=== PATIENT | male | born 1955 | race Caucasian/White ===

== ENCOUNTER → 2017-01-13 | Outpatient (CLI) | payer OTHER ==
[~2017-01-13] MED LIST: ACET-1138 PO; ALBUAER19 INH; ASPEC81 PO; ATEN50TA8 PO; ATOR-22 PO; BUPR1SUB23 PO; DOXA1TAB86 PO; LISI10TA PO; ONDA8TAB6 PO; OXYSR10 PO; RXC5 PO; SENNTAB23 PO; voltaren gel TOP
[2017-01-13 15:35] LABS: HEMATOCRIT 42.1 % (42-52); MEAN CELL VOLUME 81.1 fL (80-100); MEAN CORPUSCULAR HEMOGLOBIN 27.6 pg (25-34); MEAN PLATELET VOLUME 8.9 fL (7.4-10.4); PLATELET COUNT 209 K/uL (130-400); RED BLOOD COUNT 5.19 M/uL (4.7-6.1); WHITE BLOOD COUNT 5.84 K/uL (4.8-10.8)
[2017-01-13 16:04] LABS: ALT/SGPT 28 U/L (12-78); AST/SGOT 5 U/L (15-37); BLOOD UREA NITROGEN 7 mg/dl (7-18); BUN/CREATININE RATIO 8.7 (10-20); CALCIUM 9.1 mg/dl (8.5-10.1); CARBON DIOXIDE 27 mmol/L (21-32); CHLORIDE 105 mmol/L (98-107); CHOLESTEROL 143 mg/dl (0-200); CREATININE 0.85 mg/dl (0.60-1.40); GLUCOSE 93 mg/dl (70-99); POTASSIUM 3.8 mmol/L (3.5-5.1); SODIUM 139 mmol/L (136-145)
[2017-01-13 16:15] LABS: ALKALINE PHOSPHATASE 75 U/L (45-117); CHOLESTEROL/HDL RATIO 4.2; HDL CHOLESTEROL 34 mg/dl; LDL CHOLESTEROL CALCULATED 60 mg/dl; TRIGLYCERIDES 244 mg/dl (0-150); VERY LOW DENSITY LIPOPROT CALC 49 mg/dl
[2017-01-14 06:15] LABS: ESTIMATED AVERAGE GLUCOSE 131 mg/dl; HA1C FLAG Normal (Normal)
[2017-01-17 16:28] LABS: HEPATITIS C RNA TMA QUAL Not detected
[2017-01-18 13:45] LABS: HEPATITIS C VIRAL RNA BY PCR <15 NOT DETECTED IU/ML (<15); HEPATITIS C VIRAL RNA(LOG) PCR <1.18 NOT DETECTED LOG IU/ML (<1.18)
== END | disposition home or self-care (01) ==
LOC: C.LAB1850 14:05
PROVIDERS: ATTEND Physician Assistant
DX: I25.10 Atherosclerotic heart disease of native coronary artery without angina pectoris (principal); I10 Essential (primary) hypertension; E78.5 Hyperlipidemia, unspecified; M54.16 Radiculopathy, lumbar region; R73.9 Hyperglycemia, unspecified; J45.909 Unspecified asthma, uncomplicated; G47.33 Obstructive sleep apnea (adult) (pediatric); Z72.0 Tobacco use; G89.29 Other chronic pain; Z11.59 Encounter for screening for other viral diseases; B19.20 Unspecified viral hepatitis C without hepatic coma

== ENCOUNTER → 2017-07-22 | Outpatient (CLI) | payer OTHER ==
[~2017-07-22] VITALS: Ht 175.3 cm; Wt 113.4 kg
[~2017-07-22] MED LIST changes: -ONDA8TAB6 PO
[2017-07-22 15:52] VITALS: BP 115/86; PULSE 80; Ht 175.3 cm; Wt 113.4 kg
== END | disposition home or self-care (01) ==
LOC: C.NEUR 15:20
PROVIDERS: ATTEND Internal Medicine Pulmonary Disease
DX: G47.33 Obstructive sleep apnea (adult) (pediatric) (principal); I25.10 Atherosclerotic heart disease of native coronary artery without angina pectoris; J45.909 Unspecified asthma, uncomplicated

== ENCOUNTER → 2018-01-05 | Outpatient (CLI) | payer OTHER ==
[~2018-01-05] MED LIST changes: -ACET-1138 PO; -ALBUAER19 INH; -ASPEC81 PO; +ASPI-435 PO; -ATOR-22 PO; -BUPR1SUB23 PO; +BUPR8SUB19 SL; +LPT/40 PO; +OXGN; -OXYSR10 PO; +POLY335019 PO; -RXC5 PO; -SENNTAB23 PO; +SYMIN/8045 INH; +VNTHFA/IN INH; -voltaren gel TOP
[2018-01-05 13:02] LABS: BASO ABS # 0.06 K/uL (0-0.2); EOS % 7.9 %; EOS ABS # 0.47 K/uL (0-0.5); HEMATOCRIT 42.3 % (42-52); HEMOGLOBIN 14.5 g/dL (14.0-18.0); IG# 0.02 K/uL (0.00-0.02); LYMPH % 23.4 %; LYMPH ABS # 1.39 K/uL (1.2-3.4); MEAN CELL VOLUME 86.9 fL (80-100); MEAN CORPUSCULAR HEMOGLOBIN 29.8 pg (25-34); MEAN CORPUSCULAR HGB CONC 34.3 g/dl (32-36); MONO % 10.3 %; MONO ABS # 0.61 K/uL (0.11-0.59); NEUT % 57.1 %; NEUT ABS # 3.38 K/uL (1.4-6.5); PLATELET COUNT 193 K/uL (130-400); RED CELL DISTRIBUTION WIDTH CV 14.1 % (11.5-14.5); RED CELL DISTRIBUTION WIDTH SD 44.8 fL (36.4-46.3); WHITE BLOOD COUNT 5.93 K/uL (4.8-10.8)
[2018-01-05 13:35] LABS: HEMOGLOBIN A1C 6.3 % (4.5-5.6)
[2018-01-05 13:37] LABS: ALBUMIN 3.9 gm/dl (3.4-5.0); ALT/SGPT 21 U/L (12-78); AST/SGOT 6 U/L (15-37); BLOOD UREA NITROGEN 11 mg/dl (7-18); CALCIUM 9.1 mg/dl (8.5-10.1); CARBON DIOXIDE 27 mmol/L (21-32); CHOLESTEROL 129 mg/dl (0-200); CREATININE 0.93 mg/dl (0.60-1.40); GLUCOSE 103 mg/dl (70-99); POTASSIUM 4.2 mmol/L (3.5-5.1); SODIUM 135 mmol/L (136-145)
[2018-01-05 13:47] LABS: ALKALINE PHOSPHATASE 82 U/L (45-117); LDL CHOLESTEROL CALCULATED 62 mg/dl; TOTAL PROTEIN 7.8 gm/dl (6.4-8.2)
== END | disposition home or self-care (01) ==
LOC: C.LABPBG 09:24
PROVIDERS: ATTEND Internal Medicine
DX: Z00.00 Encounter for general adult medical examination without abnormal findings (principal); I25.10 Atherosclerotic heart disease of native coronary artery without angina pectoris; E78.5 Hyperlipidemia, unspecified; R73.9 Hyperglycemia, unspecified; I10 Essential (primary) hypertension; Z72.0 Tobacco use; M19.90 Unspecified osteoarthritis, unspecified site; F41.8 Other specified anxiety disorders

== ENCOUNTER → 2018-05-23 | Outpatient (CLI) | payer OTHER ==
--- NOTE | 2018-05-23 12:24 | DIAGNOSTIC IMAGING REPORT ---
BONE SCAN 3 PHASE LIMITED CLINICAL HISTORY: 63 years-old Male presenting with RIGHT KNEE REPLACEMENT. TECHNIQUE: Following the IV administration of 26.3 mCi of technetium 99m MDP, three-phase bone scan of the knees was performed. Anterior flow images as well as anterior and posterior blood pool phase images were acquired. Bone phase imaging of knees was performed at three hours in multiple obliquities. COMPARISON: 08/24/2016 radiograph. FINDINGS: On initial flow imaging, symmetric radiotracer distribution within the vasculature. On subsequent blood pool phase imaging, photopenic defects in the knees consistent with bilateral arthroplasty. Symmetric soft tissue radiotracer activity. On bone phase imaging, radiotracer activity subjacent to the prostheses. This activity is noted bilaterally though greater on the right. IMPRESSION: Radiotracer activity greater in the right knee only on delayed phase could be compatible with expected postsurgical change. No convincing evidence of infection or loosening. Electronically signed by: Jaret Mcfarland M.D. 05/23/2018 12:23 PM Dictated Date/Time: 05/23/2018 12:20 PM
== END | disposition home or self-care (01) ==
LOC: C.NUCL 08:25
PROVIDERS: ATTEND Physician Assistant
DX: T84.84XA Pain due to internal orthopedic prosthetic devices, implants and grafts, initial encounter (principal); X58.XXXA Exposure to other specified factors, initial encounter; Z96.651 Presence of right artificial knee joint

== ENCOUNTER 2022-11-11 17:28 | Inpatient (IN) ==
--- NOTE | 2022-11-11 17:33 | ED Triage Note ---
Date of Service November 11, 2022 History of Present Illness This patient was briefly evaluated while in triage. An abbreviated physical exam was performed. This patient is a 67-year-old Male that presents to the ED for evaluation of a sudden onset of a headache. He was driving from [employer] [place] to home and lost vision, and had a bad headache on the top of the head. He lost vision noting blurred vision. 3:30 pm onset of symptoms. He notes his vision has returned to normal and an improving headache. Initially 05/19. Physical Exam GENERAL: 67 year old male. In no acute distress. SKIN: No lesions or rashes. HEART: Regular rate and rhythm. LUNGS: Clear to auscultation. NEURO: Alert and oriented. No deficits. MUSCULOSKELETAL: No deformities to inspection of the extremities. PSYCH: Patient is pleasant and answers all questions appropriately. Initial orders for labs and / or imaging were placed and he was taken directly to a patient room for further evaluation and management.
[2022-11-11] MEDS ORDERED: ACETAMINOPHEN 1,000 MG/100 ML VIAL IV STA (17:46)
--- NOTE | 2022-11-11 17:46 | Emergency Department Note ---
Impression & Plan TIA (transient ischemic attack), Cerebrovascular disease ED Provider Note NAME: KYLAH JOHNS AGE: 67 SEX: M : 1955 ARRIVES VIA: Ambulance INFORMANT: Patient, ED PROVIDER(S): James Whaley DO CHIEF COMPLAINT: Strokelike symptoms HPI: The patient is a 67-year-old male who presented to the emergency department by ambulance for an evaluation of strokelike symptoms. The patient was driving after he came out of [facility] when he noticed an acute onset of a frontal and parietal headache which began acutely. It was moderate to severe. He states he then started noticing a foggy vision as well as dizziness. He did not try to ambulate but states he felt dizzy. He denies having any nausea or vomiting. He denies having any chest pain or difficulty breathing. He was brought to the emergency department by ambulance and was taken right to triage due to volume. When he was seen in triage she was evaluated by the provider in triage and sent directly back to a room for the possibility of stroke. When I evaluated the patient he states his symptoms are almost resolved. He describes a headache in the same distribution of about 2. He denies having any numbness or weakness. He states his vision is back to normal. He does not take any blood thinners. He does have a cardiac history but he has never had a stroke before. ROS: See above HPI for pertinent positives & negatives. A total of 10 systems reviewed and were otherwise negative. PAST MEDICAL HISTORY: See Below PAST SURGICAL HISTORY: See Below FAMILY HISTORY: See Below SOCIAL HISTORY: See Below HOME MEDICATIONS: See Below ALLERGIES: See Below VITALS: See Below PHYSICAL EXAMINATION: GENERAL: Patient is awake alert in no acute distress patient is resting comfortably and showing no signs of anxiety EYES: The conjunctivae are clear. The pupils are round and reactive. EARS, NOSE, MOUTH AND THROAT: The nose is without any evidence of any deformity. NECK: The neck is nontender and supple. RESPIRATORY: Normal respiratory effort is noted there is no evidence of wheezing rhonchi or rales CARDIOVASCULAR: Regular rate and rhythm noted there no murmurs rubs or gallops normal S1 normal S2. GASTROINTESTINAL: The abdomen is soft. Abdomen is nontender. MUSCULOSKELETAL/EXTREMITIES: There is no evidence of gross deformity full range of motion is noted in the hips and shoulders. SKIN: There is no obvious evidence of any rash. There are no petechiae, pallor or cyanosis noted. NEUROLOGIC: Patient is awake alert and oriented x3. Strength was symmetric. There is a slight facial droop at the corner of the mouth on the left involved. The forehead is not involved. Community Association Manager strength was symmetric. The patient was shown his own face using my phone and the patient states this is how his face normally looks. He denies having any symmetry. MEDICAL DECISION MAKING: The patient is a 67-year-old male who presented to the emergency department by ambulance for an evaluation of strokelike symptoms. The patient describes dizziness and visual difficulty. The patient upon arrival had a slight headache which was treated with Tylenol. He was reevaluated multiple times. He did not have any acute focal neurologic deficits on my physical exam. He had a slight facial droop but when this was shown to the patient he states this is his baseline. He does have severe cerebral artery disease. He is at high risk and given this presentation today I do not feel he would be a great candidate for outpatient management. He was treated with aspirin in the emergency department. I discussed patient's laboratory and radiographic studies with him. [facility]. The patient was not made a stroke alert. He was inside the 3-hour window but is neurologic deficits had rapidly improved. He did not appear to be a good candidate for TNKase at that time. Triage Nursing notes reviewed. Prior medical records reviewed Vital Signs: reviewed and remarkable for elevated blood pressure. Differential diagnosis: Infection, dehydration, metabolic abnormality, hypo/hyperglycemia, electrolyte disturbance, anemia, hypoxia, cardiac sources, intracerebral event, toxicologic, neurologic, as well as other pathologies. ER treatment provided: See below Diagnostics interpreted by me: ECG: EKG was obtained in the emergency department. My interpretation is normal sinus rhythm at 61 bpm. There was no ectopy. There was no acute ST segment abnormalities noted. This was compared to a tracing from May 02, 2019. No changes were noted. Cardiac Monitoring: An order was placed for continuous cardiac monitoring. The monitor shows a rate of 86 bpm with sinus rhythm. Laboratory studies: As stated above and show below. Imaging studies: See below. Radiographic imaging was reviewed by myself Consultation(s): Dr. Whyte was notified about the patient. He was on-call for the [facility] [place] hospitalist group. I discussed this case with Dr. Acosta who is on-call for neurology. He does recommend a load with Plavix at this time 300 mg as well as formal stroke work- up including echocardiogram and MRI. Further intervention on the cerebral vascular disease will be determined by the patient's clinical course as well as the findings on MRI. I have personally spent greater than 45 minutes of critical care time in the direct management of this patient. This includes bedside care, interpretation of diagnostic studies, and testing, discussion with consultants, patient, and family members, and other required patient management activities. This 45 minutes is in excess of all separately billable procedures. Past Med/Surg History Medical History Arteriosclerotic coronary artery disease Asthma BPH (benign prostatic hyperplasia) Chronic constipation Chronic leg pain Chronic osteoarthritis Degenerative disc disease Depression with anxiety Diverticulosis Dyslipidemia Dyspepsia Gastroesophageal reflux disease Hemorrhoids Hypertension Insomnia Moderate obstructive sleep apnea DOES NOT TOLERATE CPAP/BIPAP, WEARS 0XYGEN AT NIGHT 1.5-2 LPM Nephrolithiasis On home oxygen therapy 1.5-2 LPM QHS Osteoarthritis Prediabetes Type 2 diabetes mellitus Ureteral colic Vitamin D deficiency Surgical History History of appendectomy History of cardiac cath 8-10 YEARS AGO - [facility] - CP - NO STENTS/ANGIOPLASTY 2000 - [facility] --> CABG History of cataract surgery BILATERAL History of coronary artery bypass graft (2000) 2000 - 2 VESSELS - [facility] - FOLLOWS W/ DR. ROBERTS History of cystoscopy History of lithotripsy History of tonsillectomy History of tooth extraction S/P right knee arthroscopy (05/09/19) Status post total left knee replacement Status post total right knee replacement Family History Brother Lung disease Diabetes Coronary heart disease Sister Diabetes Brain cancer Mother Diabetes Myocardial infarction Ovarian cancer Father Myocardial infarction Denies family history of Prostate cancer Breast cancer Lung cancer Colorectal cancer Social History Smoking Status: Never smoker Tobacco Type: Smokeless Tobacco (Dip or Chew) Age Started Using Tobacco: 3; Second Hand Exposure: No; Hx Alcohol Use: No Hx Substance Use: No Preferred Language: Ghanaian Communication Ability: Effective Visual Impairment: No Limitations Hearing Ability: Normal Service Order Dispatcher Required: No Beliefs That Will Affect Care: None marital status: Single Current Living Situation: Spouse current occupational status: retired How many Children do You have: 2 Feels Safe at Home: Yes Childhood Exposure to Second-Hand Smoke: No Diet Comment: regular caffeine: No during the past year weight has: remained stable Dental Care, Regularly: No Physical Activity Frequency: 1-2 Times per Week Seatbelt Use: always Sunscreen Use: No Assistive Devices: Cane Allergies Allergies Allergy/AdvReac Type Severity Reaction Status Date / Time meloxicam Allergy Unknown UNKNOWN Verified 10/29/22 09:18 simvastatin Allergy Unknown UNKNOWN Verified 10/29/22 09:18 buprenorphine [From Suboxone] AdvReac Intermediate Wheezing Verified 10/29/22 09:18 naloxone [From Suboxone] AdvReac Intermediate Wheezing Verified 10/29/22 09:18 celecoxib AdvReac Mild GI PROBLEMS Verified 10/29/22 09:18 morphine AdvReac Unknown ITCHY, Verified 10/29/22 09:18 CONFUSION,AGITIATION atorvastatin AdvReac MYALGIA Verified 10/29/22 09:18 Home Meds Home Medications Medication Instructions Recorded Confirmed aspirin 81 mg tablet,delayed 81 mg PO QAM 03/07/19 10/29/22 release docusate sodium 100 mg capsule 100 mg PO BID 11/01/19 10/29/22 polyethylene glycol 3350 17 17 g PO DAILY PRN Constipation 03/24/20 10/29/22 gram/dose oral powder #1,530 grams calcium carbonate 600 mg-vitamin cap PO 01/22/22 10/29/22 D3 12.5 mcg (500 unit) capsule (Calcium 600 with Vitamin D3) Previous Rx's Medication Instructions Recorded buprenorphine HCl 8 mg sublingual 8 mg sublingual TID PRN Pain #90 06/06/20 tablet tabs amlodipine 10 mg tablet 10 mg PO DAILY #90 tabs 12/10/21 atorvastatin 40 mg tablet 40 mg PO QPM #90 tabs 08/09/22 lisinopril 10 mg tablet 10 mg PO DAILY #90 tabs 08/09/22 fluticasone fur. 100 mcg-umeclid 1 inh inhalation DAILY #90 ea 10/07/22 62.5 mcg-vilant 25 mcg inhalat.powder (Trelegy Ellipta) atenolol 50 mg tablet 50 mg PO DAILY #90 tabs 11/04/22 doxazosin 4 mg tablet 4 mg PO DAILY #90 tabs 11/04/22 fluticasone propionate 50 2 spray intranasal DAILY #16 grams 11/04/22 mcg/actuation nasal spray,suspension (Flonase Allergy Relief) Results & Data (ED) Vital Signs Vital Signs - 24 hr 11/11/22 17:31 11/11/22 17:35 Temperature 35.3 C L Temperature Source Temporal Artery Scan Pulse Rate 62 86 Pulse Rhythm Regular Pulse Strength Normal Respiratory Rate 20 18 Respiratory Effort / Characteristics Non-Labored Spontaneous Respiratory Depth Normal Respiratory Pattern Regular Blood Pressure 149/82 H Blood Pressure Mean 104 Blood Pressure Position Sitting Pulse Oximetry 97 97 Oxygen Delivery Method Room Air Room Air Sepsis Recent Fever Within 48 Hours No Sepsis New/Unexplained Change in Mental Status No Sepsis Action Taken by Nursing No Action Required Home Medications Current Medication List: was personally reviewed by me Laboratory Data Attestation: I reviewed the patient's lab results. 11/11/22 17:50 11/11/22 17:50 Lab Results 11/11/22 11/11/22 11/11/22 Range/Units 17:50 17:50 17:50 WBC 5.67 (4.8-10.8) K/ul RBC 5.30 (4.70-6.10) M/uL Hgb 15.4 (14.0-18.0) g/dl POC Hgb (14.0-18.0) g/dl Hct 45.2 (42.0-52.0) % POC Hct (42-52) % MCV 85.3 (80.0-100.0) fL MCH 29.1 (25.0-34.0) pg MCHC 34.1 (32.0-36.0) g/dL RDW Std Deviation 41.0 (36.4-46.3) fL RDW Coeff of Madhuri 13.2 (11.5-14.5) % Plt Count 185 (130-400) K/uL MPV 8.9 L (9.4-12.4) fL Immature Gran % (Auto) 0.5 % Neut % (Auto) 68.4 % Lymph % (Auto) 19.9 % Seminole % (Auto) 6.9 % Eos % (Auto) 3.2 % Baso % (Auto) 1.1 % Neut # (Auto) 3.88 (1.40-6.50) K/uL Lymph # (Auto) 1.13 L (1.2-3.4) K/uL Seminole # (Auto) 0.39 (0.11-0.59) K/uL Eos # (Auto) 0.18 (0-0.50) K/uL Baso # (Auto) 0.06 (0-0.2) K/uL Immature Gran # (Auto) 0.03 (0.01-0.20) K/uL PT 10.9 (9.0-12.0) Seconds INR 1.0 (0.9-1.1) APTT 25.5 (21.0-31.0) Seconds PTT Ratio 0.9 POC Sodium (135-144) mmol/L Sodium 136 (136-145) mmol/L POC Potassium (3.3-5.0) mmol/L Potassium 4.0 (3.5-5.1) mmol/L POC Chloride (101-112) mmol/L Chloride 101 (98-107) mmol/L Carbon Dioxide 31 (21-32) mmol/L POC Total CO2 (24-31) mmol/L Anion Gap 4 (3-11) POC Anion Gap (16-25) mmol/L POC BUN (7-18) mg/dl BUN 11 (6-23) mg/dl Creatinine 0.93 (0.6-1.4) mg/dl POC Creatinine (0.6-1.3) mg/dl Est Cr Clr Drug Dosing Not Reportable Est GFR ( Amer) 97.4 ml/min Est GFR (Non-Af Amer) 84.1 ml/min BUN/Creatinine Ratio 11.8 (10-20) Glucose 100 H (70-99(Fasting)) mg/dl POC Glucose (other) (70-99) mg/dl Calcium 10.1 (8.5-10.1) mg/dl POC Ioniz Calcium Shey (1.12-1.32) mmol/l Total Bilirubin 0.6 (0.2-1.0) mg/dl AST 10 L (13-39) U/L ALT 17 (7-52) U/L Alkaline Phosphatase 66 (34-104) U/L Troponin I High Sens 4.0 (0-20) pg/ml Total Protein 8.0 (6.0-8.3) gm/dl Albumin 4.8 (3.4-5.0) gm/dl Globulin 3.2 (2.5-4.0) gm/dl Albumin/Globulin Ratio 1.5 (0.9-2) SARS-CoV-2, RNA, NAAT (NEGATIVE) 11/11/22 11/11/22 Range/Units 17:55 18:05 WBC (4.8-10.8) K/ul RBC (4.70-6.10) M/uL Hgb (14.0-18.0) g/dl POC Hgb 16.3 (14.0-18.0) g/dl Hct (42.0-52.0) % POC Hct 48 (42-52) % MCV (80.0-100.0) fL MCH (25.0-34.0) pg MCHC (32.0-36.0) g/dL RDW Std Deviation (36.4-46.3) fL RDW Coeff of Madhuri (11.5-14.5) % Plt Count (130-400) K/uL MPV (9.4-12.4) fL Immature Gran % (Auto) % Neut % (Auto) % Lymph % (Auto) % Seminole % (Auto) % Eos % (Auto) % Baso % (Auto) % Neut # (Auto) (1.40-6.50) K/uL Lymph # (Auto) (1.2-3.4) K/uL Seminole # (Auto) (0.11-0.59) K/uL Eos # (Auto) (0-0.50) K/uL Baso # (Auto) (0-0.2) K/uL Immature Gran # (Auto) (0.01-0.20) K/uL PT (9.0-12.0) Seconds INR (0.9-1.1) APTT (21.0-31.0) Seconds PTT Ratio POC Sodium 138 (135-144) mmol/L Sodium (136-145) mmol/L POC Potassium 4.1 (3.3-5.0) mmol/L Potassium (3.5-5.1) mmol/L POC Chloride 99 L (101-112) mmol/L Chloride (98-107) mmol/L Carbon Dioxide (21-32) mmol/L POC Total CO2 29 (24-31) mmol/L Anion Gap (3-11) POC Anion Gap 15.0 L (16-25) mmol/L POC BUN 9 (7-18) mg/dl BUN (6-23) mg/dl Creatinine (0.6-1.4) mg/dl POC Creatinine 0.8 (0.6-1.3) mg/dl Est Cr Clr Drug Dosing Est GFR ( Amer) ml/min Est GFR (Non-Af Amer) ml/min BUN/Creatinine Ratio (10-20) Glucose (70-99(Fasting)) mg/dl POC Glucose (other) 100 H (70-99) mg/dl Calcium (8.5-10.1) mg/dl POC Ioniz Calcium Shey 1.15 (1.12-1.32) mmol/l Total Bilirubin (0.2-1.0) mg/dl AST (13-39) U/L ALT (7-52) U/L Alkaline Phosphatase (34-104) U/L Troponin I High Sens (0-20) pg/ml Total Protein (6.0-8.3) gm/dl Albumin (3.4-5.0) gm/dl Globulin (2.5-4.0) gm/dl Albumin/Globulin Ratio (0.9-2) SARS-CoV-2, RNA, NAAT NEGATIVE (NEGATIVE) Administered Medications Discontinued Medications Aspirin (Aspirin Chew 324 Mg) 324 mg PO NOW STA Stop: 11/11/22 19:03 Last Admin: 11/11/22 19:17 Dose: 324 mg Documented By: MARLON Acetaminophen (Ofirmev) 1,000 mg in 100 mls @ 400 mls/hr IV NOW STA Stop: 11/11/22 18:00 Last Infusion: 11/11/22 19:08 Dose: 0 mls/hr Documented By: Admin: 11/11/22 18:37 Dose: 400 mls/hr Documented By: ARMANDO Ioversol (Optiray 320 500ml) 113 ml IV ONCE ONE Stop: 11/11/22 18:34 Last Admin: 11/11/22 18:33 Dose: 113 ml Documented By: EASTON Imaging Data Radiologist's Impression: Head CTA 11/11/22 17:35 CT angio head wo/w, CT angio neck with con CT angio head wo/w, CT angio neck with con CLINICAL HISTORY: 67 years-old Male with Sudden onset headache and vision loss. Acute strokelike symptoms COMPARISON STUDY: Head CT 07/05/2013, brain MRI 08/10/2013 TECHNIQUE: Unenhanced axial CT scan of the brain is performed. Subsequently, following the IV administration of 113 cc of Optiray, CT angiogram of the head and neck was performed from the aortic arch to the skull apex. Images are reviewed in the axial, sagittal, and coronal planes. 3-D MIPS images are created and assessed. IV contrast was administered without complication. All measurements were obtained according to NASCET criteria. A dose lowering technique was utilized adhering to the principles of ALARA. CT DOSE: 1291.30 mGy.cm FINDINGS: CT BRAIN: There is no acute intracranial hemorrhage, midline shift, hydrocephalus, intracranial mass, territorial ischemia or abnormal extra-axial collections. No abnormal intra-axial or extra-axial enhancement. Mild involutional changes. Mastoid air cells and middle ear cavities are clear. No calvarial fracture. Mild mucosal thickening of the paranasal sinuses. Prior bilateral lens repair. CT ANGIOGRAM OF THE HEAD AND NECK: Three-vessel morphology of the thoracic aortic arch. Patency of the innominate and imaged subclavian arteries. The common carotid arteries are patent. Extensive atherosclerotic plaque of the right carotid bulb and proximal right ICA results in high-grade greater than 70% stenosis of the proximal cervical segment left ICA. Moderate stenosis of the left carotid bulb and proximal left ICA results in 60% narrowing of the proximal left ICA. Additional at least moderate atherosclerosis of the cavernous, clinoid and supraclinoid segments of the internal carotid arteries. The bilateral anterior and middle cerebral arteries are also patent. Dominant left vertebral artery. There is a least 50% stenosis involving portions of the V2 segment secondary to degenerative spurring of the cervical spine, notably at the C3-C4 level. There is at least moderate stenosis at the origin of the right vertebral artery. Basilar artery is patent. origin of the posterior cerebral arteries. There is no aneurysm, high- grade stenosis, or proximal branch occlusion identified. Dural sinuses appear patent. Lung apices are clear. Prior median sternotomy. Unremarkable soft tissues. Degenerative changes of the cervical spine. IMPRESSION: 1. No acute intracranial abnormality. 2. Extensive atherosclerotic plaque of the right carotid bulb and proximal right ICA results in high-grade near occlusive stenosis of the proximal right ICA. 3. 60% stenosis of the proximal cervical segment left ICA. 4. There is at least moderate stenosis at the origin of the right vertebral artery. ACT 112: Negative or not required by law. The above report was generated using voice recognition software. It may contain grammatical, syntax or spelling errors. Electronically signed by: Pablo Lambert M.D. 11/11/2022 6:54 PM Neck CTA 11/11/22 17:35 CT angio head wo/w, CT angio neck with con CT angio head wo/w, CT angio neck with con CLINICAL HISTORY: 67 years-old Male with Sudden onset headache and vision loss. Acute strokelike symptoms COMPARISON STUDY: Head CT 07/05/2013, brain MRI 08/10/2013 TECHNIQUE: Unenhanced axial CT scan of the brain is performed. Subsequently, following the IV administration of 113 cc of Optiray, CT angiogram of the head and neck was performed from the aortic arch to the skull apex. Images are reviewed in the axial, sagittal, and coronal planes. 3-D MIPS images are created and assessed. IV contrast was administered without complication. All measurements were obtained according to NASCET criteria. A dose lowering technique was utilized adhering to the principles of ALARA. CT DOSE: 1291.30 mGy.cm FINDINGS: CT BRAIN: There is no acute intracranial hemorrhage, midline shift, hydrocephalus, intracranial mass, territorial ischemia or abnormal extra-axial collections. No abnormal intra-axial or extra-axial enhancement. Mild involutional changes. Mastoid air cells and middle ear cavities are clear. No calvarial fracture. Mild mucosal thickening of the paranasal sinuses. Prior bilateral lens repair. CT ANGIOGRAM OF THE HEAD AND NECK: Three-vessel morphology of the thoracic aortic arch. Patency of the innominate and imaged subclavian arteries. The common carotid arteries are patent. Extensive atherosclerotic plaque of the right carotid bulb and proximal right ICA results in high-grade greater than 70% stenosis of the proximal cervical segment left ICA. Moderate stenosis of the left carotid bulb and proximal left ICA results in 60% narrowing of the proximal left ICA. Additional at least moderate atherosclerosis of the cavernous, clinoid and supraclinoid segments of the internal carotid arteries. The bilateral anterior and middle cerebral arteries are also patent. Dominant left vertebral artery. There is a least 50% stenosis involving portions of the V2 segment secondary to degenerative spurring of the cervical spine, notably at the C3-C4 level. There is at least moderate stenosis at the origin of the right vertebral artery. Basilar artery is patent. origin of the posterior cerebral arteries. There is no aneurysm, high- grade stenosis, or proximal branch occlusion identified. Dural sinuses appear patent. Lung apices are clear. Prior median sternotomy. Unremarkable soft tissues. Degenerative changes of the cervical spine. IMPRESSION: 1. No acute intracranial abnormality. 2. Extensive atherosclerotic plaque of the right carotid bulb and proximal right ICA results in high-grade near occlusive stenosis of the proximal right ICA. 3. 60% stenosis of the proximal cervical segment left ICA. 4. There is at least moderate stenosis at the origin of the right vertebral artery. ACT 112: Negative or not required by law. The above report was generated using voice recognition software. It may contain grammatical, syntax or spelling errors. Electronically signed by: Pablo Lambert M.D. 11/11/2022 6:54 PM Chest X-Ray 11/11/22 19:02 XR chest 1V portable HISTORY: 67 years-old Male CVA acute strokelike symptoms COMPARISON: 06/09/2021 TECHNIQUE: AP view of the chest FINDINGS: Cardiac mediastinal and hilar silhouettes are unchanged. Prior median sternotomy. No pneumothorax, pleural effusion, airspace consolidation or pulmonary edema. Bones appear grossly intact. IMPRESSION: No acute process. ACT 112: Negative or not required by law. The above report was generated using voice recognition software. It may contain grammatical, syntax or spelling errors. Electronically signed by: Pablo Lambert M.D. 11/11/2022 7:19 PM Discharge Plan Visit Data Chief Complaint: Headache Stated Complaint: HEADACHE ED Provider: James Whaley Discharge Problem: TIA (transient ischemic attack), Cerebrovascular disease Patient Disposition: Being Evaluated by Hospitalist Forms Stand Alone Forms: [facility] [place] [employer] Prescriptions Prescriptions: No Action amlodipine 10 mg tablet 10 mg PO DAILY Qty: 90 3RF lisinopril 10 mg tablet 10 mg PO DAILY Qty: 90 1RF atorvastatin 40 mg tablet 40 mg PO QPM Qty: 90 1RF Rx Instructions: TAKE ONE TABLET BY MOUTH EVERY DAY. Trelegy Ellipta 100-62.5-25 mcg blister with device 1 inh inhalation DAILY Qty: 90 3RF doxazosin 4 mg tablet 4 mg PO DAILY Qty: 90 1RF atenolol 50 mg tablet 50 mg PO DAILY Qty: 90 1RF fluticasone propionate [Flonase Allergy Relief] 50 mcg/actuation spray,suspension 2 spray intranasal DAILY Qty: 16 2RF Rx Instructions: administer into each nostril aspirin 81 mg tablet,delayed release (DR/EC) 81 mg PO QAM polyethylene glycol 3350 17 gram/dose powder 17 g PO DAILY PRN (Reason: Constipation) Qty: 1530 buprenorphine HCl 8 mg tablet, sublingual 8 mg SL TID PRN (Reason: Pain) Qty: 90 0RF Rx Instructions: 8 mg SL 3 X DAILY UNDER TONGUE calcium carbonate-vitamin D3 [Calcium 600 with Vitamin D3] 600 mg-12.5 mcg (500 unit) capsule PO docusate sodium 100 mg capsule 100 mg PO BID Referrals Referrals: Kala Vargas DO [Primary Care Provider] -
[2022-11-11 18:18] LABS: iSTAT Creatinine 0.8 mg/dl (0.6-1.3); iSTAT Hemoglobin 16.3 g/dl (14.0-18.0); iSTAT Ionized Calcium 1.15 mmol/l (1.12-1.32); iSTAT Potassium 4.1 mmol/L (3.3-5.0)
[2022-11-11 18:20] LABS: Basophils # (auto) 0.06 K/uL (0-0.2); Basophils % (auto) 1.1 %; Eosinophils # (auto) 0.18 K/uL (0-0.50); Eosinophils % (auto) 3.2 %; Hematocrit (blood only) 45.2 % (42.0-52.0); Hemoglobin 15.4 g/dl (14.0-18.0); Immature Granulocytes # (auto) 0.03 K/uL (0.01-0.20); Immature Granulocytes % (auto) 0.5 %; Lymphocytes # (auto) 1.13 K/uL (1.2-3.4); Lymphocytes % (auto) 19.9 %; Mean Corpuscular Hemoglobin 29.1 pg (25.0-34.0); Mean Corpuscular Hgb Conc 34.1 g/dL (32.0-36.0); Mean Corpuscular Volume 85.3 fL (80.0-100.0); Mean Platelet Volume 8.9 fL (9.4-12.4); Monocytes # (auto) 0.39 K/uL (0.11-0.59); Monocytes % (auto) 6.9 %; Neutrophils # (auto) 3.88 K/uL (1.40-6.50); Neutrophils % (auto) 68.4 %; Platelet Count 185 K/uL (130-400); RDW Coefficient of Variation 13.2 % (11.5-14.5); White Blood Count 5.67 K/ul (4.8-10.8)
[2022-11-11 18:32] LABS: Partial Thromboplastin Ratio 0.9; Partial Thromboplastin Time 25.5 Seconds (21.0-31.0); Prothrombin Time 10.9 Seconds (9.0-12.0)
[2022-11-11] MEDS ORDERED: OPTIRAY 320 500ml IV ONE (18:33)
[2022-11-11 18:50] LABS: Alanine Aminotransferase 17 U/L (7-52); Albumin Globulin Ratio 1.5 (0.9-2); Albumin Level 4.8 gm/dl (3.4-5.0); Alkaline Phosphatase 66 U/L (34-104); Anion Gap 4 (3-11); Aspartate Aminotransferase 10 U/L (13-39); BUN Creatinine Ratio 11.8 (10-20); Bilirubin,Total 0.6 mg/dl (0.2-1.0); Blood Urea Nitrogen 11 mg/dl (6-23); Calcium 10.1 mg/dl (8.5-10.1); Carbon Dioxide 31 mmol/L (21-32); Chloride 101 mmol/L (98-107); Est GFR (African American) 97.4 ml/min; Est GFR (Non-African American) 84.1 ml/min; Globulin 3.2 gm/dl (2.5-4.0); Glucose 100 mg/dl (70-99(Fasting)); Sodium 136 mmol/L (136-145)
--- NOTE | 2022-11-11 18:56 | CT Scan Report ---
CT angio head wo/w, CT angio neck with con CT angio head wo/w, CT angio neck with con CLINICAL HISTORY: 67 years-old Male with Sudden onset headache and vision loss. Acute strokelike s ymptoms COMPARISON STUDY: Head CT 07/05/2013, brain MRI 08/10/2013 TECHNIQUE: Unenhanced axial CT scan of the brain is performed. Subsequently, following the IV adminis tration of 113 cc of Optiray, CT angiogram of the head and neck was performed from the aortic arch to the skull apex. Images are reviewed in the axial, sagittal, and coronal planes. 3-D MIPS images are created and assessed. IV contrast was administered without complication. All measurements were obtain ed according to NASCET criteria. A dose lowering technique was utilized adhering to the principles of ALARA. CT DOSE: 1291.30 mGy.cm FINDINGS: CT BRAIN: There is no acute intracranial hemorrhage, midline shift, hydrocephalus, intracranial mass, territori al ischemia or abnormal extra-axial collections. No abnormal intra-axial or extra-axial enhancement. Mild involutional changes. Mastoid air cells and middle ear cavities are clear. No calvarial fractur e. Mild mucosal thickening of the paranasal sinuses. Prior bilateral lens repair. CT ANGIOGRAM OF THE HEAD AND NECK: Three-vessel morphology of the thoracic aortic arch. Patency of the innominate and imaged subclavian arteries. The common carotid arteries are patent. Extensive atherosclerotic plaque of the right carot id bulb and proximal right ICA results in high-grade greater than 70% stenosis of the proximal cervic al segment left ICA. Moderate stenosis of the left carotid bulb and proximal left ICA results in 60% narrowing of the proximal left ICA. Additional at least moderate atherosclerosis of the cavernous, cl inoid and supraclinoid segments of the internal carotid arteries. The bilateral anterior and middle c erebral arteries are also patent. Dominant left vertebral artery. There is a least 50% stenosis invol ving portions of the V2 segment secondary to degenerative spurring of the cervical spine, notably at the C3-C4 level. There is at least moderate stenosis at the origin of the right vertebral artery. Bas ilar artery is patent. origin of the posterior cerebral arteries. There is no aneurysm, high-gr rod stenosis, or proximal branch occlusion identified. Dural sinuses appear patent. Lung apices are clear. Prior median sternotomy. Unremarkable soft tissues. Degenerative changes of th e cervical spine. IMPRESSION: 1. No acute intracranial abnormality. 2. Extensive atherosclerotic plaque of the right carotid bulb and proximal right ICA results in high- grade near occlusive stenosis of the proximal right ICA. 3. 60% stenosis of the proximal cervical segment left ICA. 4. There is at least moderate stenosis at the origin of the right vertebral artery. ACT 112: Negative or not required by law. The above report was generated using voice recognition software. It may contain grammatical, syntax o r spelling errors. Electronically signed by: Pablo Lambert M.D. 11/11/2022 6:54 PM
[2022-11-11] MEDS ORDERED: ASPIRIN CHEW 324 MG PO STA (19:02)
--- NOTE | 2022-11-11 19:20 | XRay Report ---
XR chest 1V portable HISTORY: 67 years-old Male CVA acute strokelike symptoms COMPARISON: 06/09/2021 TECHNIQUE: AP view of the chest FINDINGS: Cardiac mediastinal and hilar silhouettes are unchanged. Prior median sternotomy. No pneumothorax, pl eural effusion, airspace consolidation or pulmonary edema. Bones appear grossly intact. IMPRESSION: No acute process. ACT 112: Negative or not required by law. The above report was generated using voice recognition software. It may contain grammatical, syntax o r spelling errors. Electronically signed by: Pablo Lambert M.D. 11/11/2022 7:19 PM
[2022-11-11] MEDS ORDERED: CLOPIDOGREL BISULFATE 300 MG TAB PO STA (20:23)
--- NOTE | 2022-11-11 20:25 | History & Physical Report ---
Date of Service November 11, 2022 Assessment & Plan (1) TIA (transient ischemic attack): Plan: This is 67-year-old male with a history of of cerebrovascular disease, carotid artery stenosis COPD, HFpEF, hypertension, type 2 diabetes, moderate SHARRON who presented to [facility] for evaluation of INSERT ISSUE HERE subsequently found to have evidence of complete R ICA occlusion, 60% stenosis of the L ICA. His symptoms are concerning for a TIA. Transient Strokelike Symptmos (FLORES, Vision Disturbance, Dizziness) -- most concerning for TIA Patient presenting with FLORES and transient vision distortion (blurriness) and dizziness (?vertigo) that have since resolved On review of cardiology notes, he has apparently had numerous episodes of transient vision loss -- reportedly had an event monitor, will try to obtain results and place on chart Work-up as follows: Near complete resolution of symptoms in the ED CTA head neck demonstrating extensive plaque in the right carotid bulb and high-grade/near stenosis in the proximal right ICA; 60% stenosis of the proximal left ICA. No evidence of dysrhythmia/atrial fibrillation since arrival No FND's on exam ABCD^2 score 4 (moderate risk) Patient's presentation and known vascular disease makes his transient neurologic symptoms most concerning for TIA. Intraocular process, complicated migraine are lower on the differential but are considered. Received aspirin 324 and Plavix 300 in the ED Raise atorvastatin dose to 80 mg daily Neurology consulted in the ED who gave recommendations on medical management above Vascular surgery consulted: Appreciate insight/recommendations on need for carotid endarterectomy in the setting of severe RICARDO Neurochecks, PT, OT, speech evaluation TTE ordered MRI has been ordered Permissive hypertension (2) Carotid artery stenosis: Plan: Severe high-grade stenosis in the proximal right ICA, 60% stenosis in the proximal left ICA In the setting of TIA, appreciate vascular surgery input on need for procedural intervention/endarterectomy Continue aspirin, Plavix, and atorvastatin (3) COPD (chronic obstructive pulmonary disease): Plan: No acute needs at this time, continue Trelegy (4) Diastolic heart failure: Plan: Status post CABG with RODRIGUEZ to LAD and EDWARD to RCA; repeat catheterization in 2013 demonstrating patent bypass grafts (5) Gastroesophageal reflux disease: Plan: Continue PPI (6) Moderate obstructive sleep apnea: Plan: CPAP while here (7) Hypertension: Plan: Hold lisinopril, amlodipine in setting of permissive hypertension (8) Opioid use disorder: Plan: History of, in remission, controlled w/ scheduled Subutex Plan Code: Full code Prophylaxis: SCDs Dispo MST Diet: Pending speech eval, cardiac diet History of Present Illness Primary Care Provider: Kala Vargas, This is 67-year-old male with a history of of cerebrovascular disease, carotid artery stenosis COPD, HFpEF, hypertension, type 2 diabetes, moderate SHARRON who presented to [facility] for evaluation of headache, visual disturbance, and dizziness. Patient is a very pleasant but somewhat difficult historian. He said he was in his normal health up until earlier this afternoon, when he was at [facility] and developed an acute onset frontal headache. He said shortly thereafter, he developed blurry vision. Unfortunately, he is unable to elaborate on this furtherhe does not know if it was 1 side, both sides. He describes any flashers or floaters. He says that his vision just looked "blurry. "He also said throughout this time that he felt dizzy. He is also unable to elaborate on this more, but he thinks maybe it felt like the room was spinning. He then proceeded to drive home. He said that the symptoms resolved about an hour thereafter. He continues to have a headache throughout this time. He denies any nausea or vomiting. Denies any palpitations. He does say that he is being followed by his tribal council member and has had transient vision loss in the past similar to this event. He reportedly had a feed project engineer study performed, but does not know the results. In the ER, patient was found to be hemodynamically stable. Admission labs revealing blood pressure 150/80, heart rate 86, saturating well on room air. Admission labs revealing BUN 11/creatinine 0.9. CTA of the head and neck de monstrated "extensive atherosclerotic plaque of the right carotid bulb and proximal right ICA results in high-grade near occlusive stenosis of the proximal right ICA. 60% stenosis of the proximal cervical segment of the left ICA. At least moderate stenosis at the origin of the right vertebral artery. "Chest x- ray did not demonstrate acute process. He was given aspirin 324 and Plavix 300mg daily. ---- This documentation was created utilizing dictation software. As such, syntax, grammatical, and word-choice errors may be present. Notes are screened prior to submission in an attempt to reduce these errors. If there are any questions or concerns, please contact the author directly for clarification. Allergies Allergy/AdvReac Type Severity Reaction Status Date / Time meloxicam Allergy Unknown UNKNOWN Verified 11/11/22 20:43 simvastatin Allergy Unknown UNKNOWN Verified 11/11/22 20:43 buprenorphine [From Suboxone] AdvReac Intermediate Wheezing Verified 11/11/22 20:43 naloxone [From Suboxone] AdvReac Intermediate Wheezing Verified 11/11/22 20:43 celecoxib AdvReac Mild GI PROBLEMS Verified 11/11/22 20:43 morphine AdvReac Unknown ITCHY, Verified 11/11/22 20:43 CONFUSION,AGITIATION atorvastatin AdvReac MYALGIA Verified 11/11/22 20:43 Home Medications Medication Instructions Recorded Confirmed Type aspirin 81 mg tablet,delayed 81 mg PO QAM 03/07/19 11/11/22 History release docusate sodium 100 mg capsule 100 mg PO BID 11/01/19 11/11/22 History polyethylene glycol 3350 17 17 g PO DAILY PRN Constipation 03/24/20 11/11/22 History gram/dose oral powder #1,530 grams amlodipine 10 mg tablet 10 mg PO DAILY #90 tabs 12/10/21 11/11/22 Rx calcium carbonate 600 mg-vitamin 1 cap PO DAILY 01/22/22 11/11/22 History D3 12.5 mcg (500 unit) capsule (Calcium 600 with Vitamin D3) atorvastatin 40 mg tablet 40 mg PO QPM #90 tabs 08/09/22 11/11/22 Rx lisinopril 10 mg tablet 10 mg PO DAILY #90 tabs 08/09/22 11/11/22 Rx fluticasone fur. 100 mcg-umeclid 1 inh inhalation DAILY #90 ea 10/07/22 11/11/22 Rx 62.5 mcg-vilant 25 mcg inhalat.powder (Trelegy Ellipta) atenolol 50 mg tablet 50 mg PO DAILY #90 tabs 11/04/22 11/11/22 Rx doxazosin 4 mg tablet 4 mg PO DAILY #90 tabs 11/04/22 11/11/22 Rx fluticasone propionate 50 2 spray intranasal DAILY #16 grams 11/04/22 11/11/22 Rx mcg/actuation nasal spray,suspension (Flonase Allergy Relief) buprenorphine HCl 8 mg sublingual 8 mg sublingual TID 11/11/22 11/11/22 History tablet Past Med/Surg History Medical History Arteriosclerotic coronary artery disease Asthma BPH (benign prostatic hyperplasia) Chronic constipation Chronic leg pain Chronic osteoarthritis Degenerative disc disease Depression with anxiety Diverticulosis Dyslipidemia Dyspepsia Gastroesophageal reflux disease Hemorrhoids Hypertension Insomnia Moderate obstructive sleep apnea DOES NOT TOLERATE CPAP/BIPAP, WEARS 0XYGEN AT NIGHT 1.5-2 LPM Nephrolithiasis On home oxygen therapy 1.5-2 LPM QHS Osteoarthritis Prediabetes Type 2 diabetes mellitus Ureteral colic Vitamin D deficiency Surgical History History of appendectomy History of cardiac cath 8-10 YEARS AGO - [facility] - - NO STENTS/ANGIOPLASTY 2000 - [facility] --> CABG History of cataract surgery BILATERAL History of coronary artery bypass graft (2000) 2000 - 2 VESSELS - [facility] - FOLLOWS W/ DR. ROBERTS History of cystoscopy History of lithotripsy History of tonsillectomy History of tooth extraction S/P right knee arthroscopy (05/09/19) Status post total left knee replacement Status post total right knee replacement Family History Brother Lung disease Diabetes Coronary heart disease Sister Diabetes Brain cancer Mother Diabetes Myocardial infarction Ovarian cancer Father Myocardial infarction Denies family history of Prostate cancer Breast cancer Lung cancer Colorectal cancer Social History Smoking Status: Current every day smoker Tobacco Type: Smokeless Tobacco (Dip or Chew) Age Started Using Tobacco: 3; Second Hand Exposure: No; Hx Alcohol Use: No Hx Substance Use: No Preferred Language: Urdu Communication Ability: Effective Visual Impairment: No Limitations Hearing Ability: Normal Telemarketing Agent Required: No Beliefs That Will Affect Care: None marital status: Single Current Living Situation: Spouse current occupational status: retired How many Children do You have: 2 Feels Safe at Home: Yes Childhood Exposure to Second-Hand Smoke: No Diet Comment: regular caffeine: No during the past year weight has: remained stable Dental Care, Regularly: No Physical Activity Frequency: 1-2 Times per Week Seatbelt Use: always Sunscreen Use: No Assistive Devices: Cane and Oxygen - at Night Review of Systems Review of Systems: as per HPI Physical Exam Physical Exam: General: 67-year old male who is alert, oriented, and appears in no acute distress. Difficult to discern whether or not speech is dysarthric vs. baseline per his report. HEENT: NCAT. - Eyes - Sclera are white, anicteric, and without injection. - Mouth - MMM - Neck - supple, no appreciable JVD Cardiac: Normal rate and regular rhythm; S1 and S2 present with no murmurs, rubs, or gallops. Pulmonary: Good respiratory effort with symmetric expansion of the chest. No use of accessory muscles. Lungs were clear to auscultation bilaterally with no crackles or wheezes. Abdominal: Normoactive bowel sounds. Abdomen was soft, nondistended, and non- tender to palpation. Extremities: Upper and lower extremities are warm and well perfused. No peripheral edema in the lower extremities bilaterally Neuro: - Cranial Nerves: CN I, IX, XIII, and X - not assessed. II - PERRL. III/IV/ - EOMs WNL. No nystagmus. V - Facial sensation in tact in all three divisions; jaw opening WNL. VII - Patient is able to smile symmetrically and keep eyes close against resistance. IX - Soft palate raises equally and appropriately while saying "ah." XI - Patient is able to shrug shoulders against resistance. XII - patient is able to stick out tongue and deviate from [id number]-ar-qizw appropriately. - Motor: UE - Finger, wrist, elbow, and shoulder strength is 5/5 bilaterally. LE - Hip, knee, and ankle strength is 5/5 bilaterally. - Sensation: UE and LE sensation to light touch is grossly intact bilaterally. - Reflexes - Biceps 2+ b/l; No clonus. - [id number]-[id number]: WNL b/l. No dysmetria. - Ykjh-lh-tlpb; WNL b/l. Psych: Well-developed, well-nourished, appropriately dressed for occasion. Behavior is cooperative and appropriate. Affect is WNL. Insight is appropriate. Results & Data Results & Data ([facility]) Vital Signs (Past 12 Hours) Vital Signs Temp Pulse Resp BP Pulse Ox O2 Del Method 11/11/22 17:35 86 18 97 Room Air 11/11/22 17:31 35.3 C L 62 20 149/82 H 97 Room Air Supervising Physician Co-Signing Physician Notes Attending addendum: I have physically seen this patient, have supervised the medical residents activities, and agree with the H&P unless as otherwise noted. Assessment and Plan: TIA/strokelike symptoms- CT head/CTA head neck significant for high-grade near occlusion in the proximal right ICA, 60% stenosis of proximal cervical left ICA, and moderate stenosis of right vertebral artery Order MRI brain without contrast Order complete echocardiogram Patient will be started on Plavix 20 mg p.o. tonight, then 75 mg p.o. every morning He also received aspirin 324 mg tonight, and then 81 mg every morning Neurology consult to see patient in a.m. Check a fasting lipid panel and hemoglobin A1c Permissive hypertension. Hold amlodipine and lisinopril Continue atenolol and doxazosin with hold parameters Hyperlipidemia- On atorvastatin 40 mg daily Check a fasting lipid panel was noted Amlodipine and lisinopril as noted to allow permissive hypertension COPD- Continue usual inhalers CAD/hypertension/diastolic heart failure- Adjusting medications as noted above Check serial troponins, and follow on telemetry for cardiac rhythm monitoring. Complete echocardiogram as noted Remaining orders and notations as noted Resident Activity Tracking Resident Involvement: Resident Care Provided Care Provided: Adult [facility]
[2022-11-11] MEDS ORDERED: ACETAMINOPHEN 500 MG TAB PO STA (21:07)
[2022-11-11] MEDS ORDERED: POLYETHYLENE (MIRALAX) 17 GM PACK PO PRN (22:58)
[2022-11-11] MEDS ORDERED: PHARMACIST DISCHARGE MED REC CONSULT PRN (22:58)
[2022-11-12] MEDS: ATORVASTATIN 40 MG TAB PO SCH ×2 (00:52→21:21)
[2022-11-12 05:31] LABS: Basophils # (auto) 0.05 K/uL (0-0.2); Basophils % (auto) 0.9 %; Eosinophils # (auto) 0.23 K/uL (0-0.50); Eosinophils % (auto) 4.1 %; Hematocrit (blood only) 41.9 % (42.0-52.0); Hemoglobin 14.2 g/dl (14.0-18.0); Immature Granulocytes # (auto) 0.02 K/uL (0.01-0.20); Immature Granulocytes % (auto) 0.4 %; Lymphocytes % (auto) 24.8 %; Mean Corpuscular Hemoglobin 29.3 pg (25.0-34.0); Mean Corpuscular Hgb Conc 33.9 g/dL (32.0-36.0); Mean Corpuscular Volume 86.4 fL (80.0-100.0); Mean Platelet Volume 8.9 fL (9.4-12.4); Monocytes # (auto) 0.49 K/uL (0.11-0.59); Monocytes % (auto) 8.7 %; Neutrophils # (auto) 3.46 K/uL (1.40-6.50); Neutrophils % (auto) 61.1 %; Platelet Count 163 K/uL (130-400); RDW Coefficient of Variation 13.3 % (11.5-14.5); RDW Standard Deviation 41.8 fL (36.4-46.3); Red Blood Count 4.85 M/uL (4.70-6.10); White Blood Count 5.65 K/ul (4.8-10.8)
[2022-11-12 05:47] LABS: BUN Creatinine Ratio 11.7 (10-20); Calcium 9.5 mg/dl (8.5-10.1); Chol HDL Ratio 4.3 (0-5); Creatinine Clr Calc Pharmacy 107.1 ml/min; Est GFR (African American) 108.1 ml/min; Est GFR (Non-African American) 93.2 ml/min; Potassium 4.1 mmol/L (3.5-5.1)
[2022-11-12] MEDS: DOCUSATE SODIUM 100 MG CAP PO SCH ×2 (08:22→21:21)
[2022-11-12] MEDS: ASPIRIN 81 MG ECTAB PO SCH (08:22)
[2022-11-12] MEDS: DOXAZosin MESYLATE 4 MG TAB PO SCH (08:22)
[2022-11-12] MEDS: FLUTICASONE FUROATE 100MCG 14 PUFFS/INHALER INH SCH (08:23)
[2022-11-12] MEDS: UMECLIDINIUM/VILANTEROL 62.5/25MCG 7 PUFFS/INHALER INH SCH (08:24)
[2022-11-12] MEDS: FLUTICASONE PROPIONATE NA SPR 16 GM BTL NAE SCH (08:24)
[2022-11-12 08:26] LABS: Estimated Average Glucose 126 mg/dl
--- NOTE | 2022-11-12 10:18 | XCELERA ---
[id number]
[2022-11-12] MEDS: buprenorphine HCL 8 MG SUBL SL SCH ×3 (11:13→21:21)
--- NOTE | 2022-11-12 11:19 | Consultation ---
Date of Consultation November 12, 2022 Assessment & Plan (1) Carotid artery stenosis: Pt with severe (string sign) R ICA stenosis noted on CTA neck. Imaging reviewed by Dr Juarez. This does place pt at increased risk of CVA. His current sx of BL vision changes and occipital FLORES are not likely related to his carotid stenosis and should be further eval by medicine. D/T the severity of his R ICA stenosis and increased risk of CVA, recommend pt undergo R TCAR vs CEA in the near future. Both procedures discussed with pt and he prefers the TCAR procedure, however, he wishes to discuss with his family prior to proceeding. Advised pt we can see him in office next week to discuss further and schedule procedure. He was agreeable to this. PT WILL NEED TO BE DISCHARGED ON PLAVIX, ASA, and STATIN MEDICATION IN PREPARATION FOR THIS PROCEDURE. Please call if needed. History of Present Illness Reason for Consultation: carotid stenosis Attending Physician: Cira Harrington MD History of Present Illness 67 yo m with hx of CAD, HTN, DMII, dyslipidemia, depression/anxiety, BPH, SHARRON, GERD, asthma, osteoarthritis, heart failure, admitted with possible TIA and found to have BL ICA stenosis, seen in consultation today. Pt states he has been having multiple events over the past 2 months of BL vision changes that he describes as "blurriness" or "foggy vision." States the sx last about 5-10 minutes and the only other associated sx are a posterior neck/head headache. States it seemed worse yesterday than previous episodes, so came to [facility] ED for eval. Has not noticed any balance problems. Denies black/dark sections of vision, syncope or near syncope, palpitations, chest pain, SOB, abd pain, N/V, rest pain, claudication, unilateral extremity weakness or numbness, facial droop, difficulty speaking, other complaints. Pt refusing MRI brain d/t anxiety. CTA neck demonstrates severe R ICA stenosis with string sign, and about 60% stenosis of L ICA. Allergies Allergy/AdvReac Type Severity Reaction Status Date / Time meloxicam Allergy Unknown UNKNOWN Verified 11/11/22 20:43 simvastatin Allergy Unknown UNKNOWN Verified 11/11/22 20:43 buprenorphine [From Suboxone] AdvReac Intermediate Wheezing Verified 11/11/22 20:43 naloxone [From Suboxone] AdvReac Intermediate Wheezing Verified 11/11/22 20:43 celecoxib AdvReac Mild GI PROBLEMS Verified 11/11/22 20:43 morphine AdvReac Unknown ITCHY, Verified 11/11/22 20:43 CONFUSION,AGITIATION atorvastatin AdvReac MYALGIA Verified 11/11/22 20:43 Home Medications Medication Instructions Recorded Confirmed Type aspirin 81 mg tablet,delayed 81 mg PO QAM 03/07/19 11/11/22 History release docusate sodium 100 mg capsule 100 mg PO BID 11/01/19 11/11/22 History polyethylene glycol 3350 17 17 g PO DAILY PRN Constipation 03/24/20 11/11/22 History gram/dose oral powder #1,530 grams amlodipine 10 mg tablet 10 mg PO DAILY #90 tabs 12/10/21 11/11/22 Rx calcium carbonate 600 mg-vitamin 1 cap PO DAILY 01/22/22 11/11/22 History D3 12.5 mcg (500 unit) capsule (Calcium 600 with Vitamin D3) atorvastatin 40 mg tablet 40 mg PO QPM #90 tabs 08/09/22 11/11/22 Rx lisinopril 10 mg tablet 10 mg PO DAILY #90 tabs 08/09/22 11/11/22 Rx fluticasone fur. 100 mcg-umeclid 1 inh inhalation DAILY #90 ea 10/07/22 11/11/22 Rx 62.5 mcg-vilant 25 mcg inhalat.powder (Trelegy Ellipta) atenolol 50 mg tablet 50 mg PO DAILY #90 tabs 11/04/22 11/11/22 Rx doxazosin 4 mg tablet 4 mg PO DAILY #90 tabs 11/04/22 11/11/22 Rx fluticasone propionate 50 2 spray intranasal DAILY #16 grams 11/04/22 11/11/22 Rx mcg/actuation nasal spray,suspension (Flonase Allergy Relief) buprenorphine HCl 8 mg sublingual 8 mg sublingual TID 11/11/22 11/11/22 History tablet Patient History Medical History Arteriosclerotic coronary artery disease Asthma BPH (benign prostatic hyperplasia) Chronic constipation Chronic leg pain Chronic osteoarthritis Degenerative disc disease Depression with anxiety Diverticulosis Dyslipidemia Dyspepsia Gastroesophageal reflux disease Hemorrhoids Hypertension Insomnia Moderate obstructive sleep apnea DOES NOT TOLERATE CPAP/BIPAP, WEARS 0XYGEN AT NIGHT 1.5-2 LPM Nephrolithiasis On home oxygen therapy 1.5-2 LPM QHS Osteoarthritis Prediabetes Type 2 diabetes mellitus Ureteral colic Vitamin D deficiency Surgical History History of appendectomy History of cardiac cath 8-10 YEARS AGO - [facility] - - NO STENTS/ANGIOPLASTY 2000 - [facility] --> CABG History of cataract surgery BILATERAL History of coronary artery bypass graft (2000) 2000 - [facility] - [facility] - FOLLOWS W/ DR. ROBERTS History of cystoscopy History of lithotripsy History of tonsillectomy History of tooth extraction S/P right knee arthroscopy (05/09/19) Status post total left knee replacement Status post total right knee replacement Family History Brother Lung disease Diabetes Coronary heart disease Sister Diabetes Brain cancer Mother Diabetes Myocardial infarction Ovarian cancer Father Myocardial infarction Denies family history of Prostate cancer Breast cancer Lung cancer Colorectal cancer Social History Smoking Status: Current every day smoker Tobacco Type: Smokeless Tobacco (Dip or Chew) Age Started Using Tobacco: 3; Second Hand Exposure: No; Hx Alcohol Use: No Hx Substance Use: No Preferred Language: Sierra Leonean Communication Ability: Effective Visual Impairment: No Limitations Hearing Ability: Normal 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 Toy 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 Required: No Beliefs That Will Affect Care: None marital status: Single Current Living Situation: Spouse current occupational status: retired How many Children do You have: 2 Feels Safe at Home: Yes Safety Concerns: Feels Safe At This Time Childhood Exposure to Second-Hand Smoke: No Diet Comment: regular caffeine: No during the past year weight has: remained stable Dental Care, Regularly: No Physical Activity Frequency: 1-2 Times per Week Seatbelt Use: always Sunscreen Use: No Assistive Devices: CPAP Assistive Devices Comment: does not use Review of Systems Review of Systems: All systems reviewed & are unremarkable except as noted in HPI & below Physical Exam Constitutional: WD/WN, vitals as above + obese and + combative; not in distress ENMT: Ears: no hearing impairment Neck: trachea midline Respiratory: normal respiratory effort, lungs clear to auscultation Auscultation: + diminished lung sounds Cardiovascular: Rate/Rhythm: regular rate and regular rhythm Vessels: + carotid bruit, femoral pulses present, posterior tibial pulses present, dorsalis pedis pulses present and radial pulses present; + abnormal peripheral pulses Extremities: normal capillary refill; no edema Gastrointestinal (Abdomen): Inspection/Auscultation: abdomen normal to inspection and normal bowel sounds Percussion/Palpation: abdomen soft; abdomen nontender Musculoskeletal: no cyanosis or clubbing, extremities motor strength 5/5 Skin: no rashes, warm and dry Neurologic: moves all extremities and awake; no focal motor deficits and not confused Psychiatric: A+Ox3, euthymic affect Results & Data ([facility]) Vital Signs (Past 12 Hours) Vital Signs Temp Pulse Resp BP Pulse Ox O2 Del Method 11/12/22 07:24 57 L 18 143/83 H 94 Room Air 11/12/22 05:00 53 L 16 114/71 95 Room Air 11/12/22 01:07 36.7 C 53 L 18 120/48 L 95 Room Air
--- NOTE | 2022-11-12 11:26 | Electrocardiogram Report ---
Test Reason : Blood Pressure : / mmHG Vent. Rate : 059 BPM Atrial Rate : 059 BPM P-R Int : 164 ms QRS Dur : 088 ms QT Int : 434 ms P-R-T Axes : 038 045 054 degrees QTc Int : 429 ms Poor data quality, interpretation may be adversely affected Sinus bradycardia Otherwise normal ECG When compared with ECG of 02-MAY-2019 10:22, No significant change was found Confirmed by James Garcia ([id number]) on 11/12/2022 11:26:06 AM Referred By: REFERRED SELF Confirmed By:James Garcia
--- NOTE | 2022-11-12 11:55 | Hospitalist Progress Note ---
Date of Service November 12, 2022 Assessment & Plan (1) TIA (transient ischemic attack): Plan: This is 67-year-old male with a history of of cerebrovascular disease, carotid artery stenosis COPD, HFpEF, hypertension, type 2 diabetes, moderate SHARRON who presented to [facility] for evaluation of stroke like symptoms, which completely resolved upon arrival at the ED, but subsequently found to have evidence of complete R ICA occlusion, 60% stenosis of the L ICA. Patient presenting with FLORES and transient vision distortion (blurriness) and dizziness (?vertigo) that have since resolved CTA head neck demonstrating extensive plaque in the right carotid bulb and high-grade/near stenosis in the proximal right ICA; 60% stenosis of the proximal left ICA. Received aspirin 324 and Plavix 300 in the ED Raise atorvastatin dose to 80 mg daily Neurology consulted in the ED who gave recommendations on medical management above Vascular surgery consulted, plan is for CEA or stent placement TTE shows EF 60-65%, no wall motion abnormalities MRI has been ordered, but patient unable to tolerate MRI, even when he was offered mild sedation. MRI will be cancelled (2) Carotid artery stenosis: Plan: Severe high-grade stenosis in the proximal right ICA, 60% stenosis in the proximal left ICA In the setting of TIA, appreciate vascular surgery input on need for procedural intervention/endarterectomy Continue aspirin, Plavix, and atorvastatin (3) COPD (chronic obstructive pulmonary disease): Plan: No acute needs at this time, continue Trelegy (4) Diastolic heart failure: Plan: Status post CABG with ORDRIGUEZ to LAD and EDWARD to RCA; repeat catheterization in 2013 demonstrating patent bypass grafts (5) Gastroesophageal reflux disease: Plan: Continue PPI (6) Moderate obstructive sleep apnea: Plan: CPAP while here (7) Hypertension: Plan: Hold lisinopril, amlodipine in setting of permissive hypertension (8) Opioid use disorder: Plan: History of, in remission, controlled w/ scheduled Subutex Plan Code: Full code Prophylaxis: SCDs Dispo continue hospitalization Admission and Anticipated Discharge Date Admission Date: November 11, 2022 Subjective patient seen and examined, says he takes suboxone at home, denies dizziness Review of Systems Review of Systems: All systems reviewed are negative, apart from the ones contained in the history. Physical Exam Physical Exam: The patient is awake, alert and oriented 3, well developed and well nourished, normocephalic and atraumatic, lying in bed and in no acute distress. HEENT--PERRL, EOMI, mucous membranes and oropharynx mildly dry Neck--supple. No JVD. No bruits. Thyroid normal, trachea midline, no adenopathy. Heart--normal S1 and S2. No murmurs, rubs or gallops. Lungs--clear bilaterally, no respiratory distress, no accessory muscle use. Abdomen--normal bowel sounds and soft. Mild epigastric and left sided abdominal pain Extremities--no cyanosis or clubbing. No edema. Dermatologic--normal skin turgor, normal color, no abnormal lymph nodes, no rash. Neurologic--cranial nerves II through XII grossly intact. Rheumatologic--normal range of motion. Psychiatric--normal affect. Results & Data Results & Data ([facility]) Vital Signs (Past 12 Hours) Vital Signs Temp Pulse Resp BP Pulse Ox O2 Del Method 11/12/22 10:57 96 11/12/22 07:24 57 L 18 143/83 H 94 Room Air 11/12/22 05:00 53 L 16 114/71 95 Room Air 11/12/22 01:07 98.1 F 53 L 18 120/48 L 95 Room Air PG Care Time/CCT Total # of Minutes Spent Total Time Spent with Patient: Total time spent is greater than 50% in coordination of care (as documented) at patient's floor/unit and/or counseling patient: Coding Level of Care Code 92034 SUB INP/OBS CARE 2/35MIN Diagnoses TIA (transient ischemic attack) G45.9 Carotid artery stenosis I65.29 COPD (chronic obstructive pulmonary disease) J44.9 Diastolic heart failure I50.30 Gastroesophageal reflux disease K21.9 Moderate obstructive sleep apnea G47.33 Hypertension I10 Opioid use disorder F11.90 Time Spent (min) 35
[2022-11-12] MEDS: CLOPIDOGREL BISULFATE 75 MG TAB PO SCH (12:02)
--- NOTE | 2022-11-12 16:01 | Neurology Consultation ---
Date of Consultation November 12, 2022 Assessment & Plan (1) Stroke-like symptoms: Impression: The patient had sudden onset of dizziness, lightheadedness, with following bilateral visual obscuration, and right-sided headache, which lasted less than 10 minutes. The patient reports having similar episodes recently, but he did not seek attention done. He denies having migraines in the past. Imaging studies showed bilateral carotid artery stenosis, severe on the right and moderate on the left. The patient has multiple stroke risk factors including chronic tobacco chewing. Based on history, the patient likely had cerebral hypoperfusion, and near syncopal episode. He declined MRI study because of prior intolerance. He was seen by vascular surgery and he is a candidate for right carotid artery intervention. Plan/recommendations: The patient loaded with Plavix and we should keep patient on double antiplatelet treatment until getting surgical treatment of right internal carotid artery critical stenosis. Plavix 75 mg daily and aspirin 81 mg daily. Continue on Lipitor 80 mg daily. The patient should hydrate himself well. Because of significant atherosclerotic disease and carotid artery stenosis, we should avoid hypotension. Until vascular surgery, we do recommend keeping systolic blood pressure between 130-150. Repeat head CT without contrast. Apparently, the patient declined brain MRI with anesthesia. If repeat head CT comes unremarkable, then the patient can be discharged home today. Treatment of obstructive sleep apnea is recommended. Weight loss, and diet modification is strongly recommended. Cessation of tobacco use is strongly recommended. Management of hyperlipidemia with goal LDL level is lower than 70. Management of diabetes mellitus. The patient has an appointment with vascular surgery. Follow-up with neurology in a month. I will contact with [facility] neurology group to make an appointment. Thank you for the consultation. (2) Intracranial atherosclerosis: Impression: As seen above. (3) Bilateral carotid artery stenosis: Impression: As seen above. (4) Dyslipidemia: Impression: As seen above. (5) Type 2 diabetes mellitus: Impression: As seen above. (6) Moderate obstructive sleep apnea: Impression: As seen above. History of Present Illness Reason for Consultation: Stroke like symptoms Requesting Physician: Kurt Cortes MD Attending Physician: Cira Harrington MD History of Present Illness The patient is a 67-year-old right-handed gentleman, who presented to the emergency department yesterday evening, after the patient had an episode of dizziness, bilateral visual impairment, lightheadedness, and right sided headache, which lasted for 5 to 7 minutes. The patient reports that after shopping, he was sitting in his car, and was chewing tobacco, and suddenly felt lightheadedness first, then hot feeling, dizziness, without spinning sensation or nausea, and darkening of vision. He did not pass out but pulled over and waited for few minutes, and his symptoms were resolving in 5 minutes. He was taken to emergency department, and he was almost asymptomatic in ED and he was not considered a candidate for thrombolytic treatment. He denies having migraines in the past. Head CT was unremarkable but CT angiography of head showed severe, right internal carotid artery stenosis, and moderate left internal carotid artery stenosis, and some stenosis of left vertebral artery. This was atherosclerotic stenosis, without obvious thrombus. The patient was l oaded with Plavix on top of aspirin, and Lipitor dosage was increased from 40 mg to 80 mg. Apparently, the patient has had 2 additional similar symptoms recently, but did not seek medical attention. The patient has multiple stroke risk factors including coronary artery disease status post CABG, hypertension, hyperlipidemia, borderline diabetes, obstructive sleep apnea not on CPAP treatment, obesity, and atherosclerotic disease. Since admission, the patient was seen by vascular surgery and they recommended intervention, and the patient will be followed by them in clinic. Since admission, the patient has been symptom-free. Because of sleep apnea, and phobia, the patient cannot tolerate MRI, even with sedation. We offer patient an MRI with under anesthesia, but he declined. He reports that he has been chewing tobacco since age of 3. Currently, he uses 3 to 4 cans of Skoal daily. I have reviewed the patient's chart including imaging studies and visualized them personally. I have discussed the case with the patient and answered his questions in detail. Allergies Allergy/AdvReac Type Severity Reaction Status Date / Time meloxicam Allergy Unknown UNKNOWN Verified 11/11/22 20:43 simvastatin Allergy Unknown UNKNOWN Verified 11/11/22 20:43 buprenorphine [From Suboxone] AdvReac Intermediate Wheezing Verified 11/11/22 20:43 naloxone [From Suboxone] AdvReac Intermediate Wheezing Verified 11/11/22 20:43 celecoxib AdvReac Mild GI PROBLEMS Verified 11/11/22 20:43 morphine AdvReac Unknown ITCHY, Verified 11/11/22 20:43 CONFUSION,AGITIATION atorvastatin AdvReac MYALGIA Verified 11/11/22 20:43 Home Medications Medication Instructions Recorded Confirmed Type aspirin 81 mg tablet,delayed 81 mg PO QAM 03/07/19 11/11/22 History release docusate sodium 100 mg capsule 100 mg PO BID 11/01/19 11/11/22 History polyethylene glycol 3350 17 17 g PO DAILY PRN Constipation 03/24/20 11/11/22 History gram/dose oral powder #1,530 grams amlodipine 10 mg tablet 10 mg PO DAILY #90 tabs 12/10/21 11/11/22 Rx calcium carbonate 600 mg-vitamin 1 cap PO DAILY 01/22/22 11/11/22 History D3 12.5 mcg (500 unit) capsule (Calcium 600 with Vitamin D3) atorvastatin 40 mg tablet 40 mg PO QPM #90 tabs 08/09/22 11/11/22 Rx lisinopril 10 mg tablet 10 mg PO DAILY #90 tabs 08/09/22 11/11/22 Rx fluticasone fur. 100 mcg-umeclid 1 inh inhalation DAILY #90 ea 10/07/22 11/11/22 Rx 62.5 mcg-vilant 25 mcg inhalat.powder (Trelegy Ellipta) atenolol 50 mg tablet 50 mg PO DAILY #90 tabs 11/04/22 11/11/22 Rx doxazosin 4 mg tablet 4 mg PO DAILY #90 tabs 11/04/22 11/11/22 Rx fluticasone propionate 50 2 spray intranasal DAILY #16 grams 11/04/22 11/11/22 Rx mcg/actuation nasal spray,suspension (Flonase Allergy Relief) buprenorphine HCl 8 mg sublingual 8 mg sublingual TID 11/11/22 11/11/22 History tablet Patient History Medical History Arteriosclerotic coronary artery disease Asthma BPH (benign prostatic hyperplasia) Chronic constipation Chronic leg pain Chronic osteoarthritis Degenerative disc disease Depression with anxiety Diverticulosis Dyslipidemia Dyspepsia Gastroesophageal reflux disease Hemorrhoids Hypertension Insomnia Moderate obstructive sleep apnea DOES NOT TOLERATE CPAP/BIPAP, WEARS 0XYGEN AT NIGHT 1.5-2 LPM Nephrolithiasis On home oxygen therapy 1.5-2 LPM QHS Osteoarthritis Prediabetes Type 2 diabetes mellitus Ureteral colic Vitamin D deficiency Surgical History History of appendectomy History of cardiac cath 8-10 YEARS AGO - [facility] - CP - NO STENTS/ANGIOPLASTY 2000 - [facility] [place] --> CABG History of cataract surgery BILATERAL History of coronary artery bypass graft (2000) 2000 - 2 VESSELS - [facility] [place] - FOLLOWS W/ DR. ROBERTS History of cystoscopy History of lithotripsy History of tonsillectomy History of tooth extraction S/P right knee arthroscopy (05/09/19) Status post total left knee replacement Status post total right knee replacement Family History Brother Lung disease Diabetes Coronary heart disease Sister Diabetes Brain cancer Mother Diabetes Myocardial infarction Ovarian cancer Father Myocardial infarction Denies family history of Prostate cancer Breast cancer Lung cancer Colorectal cancer Social History Smoking Status: Current every day smoker Tobacco Type: Smokeless Tobacco (Dip or Chew) Age Started Using Tobacco: 3; Second Hand Exposure: No; Hx Alcohol Use: No Hx Substance Use: No Preferred Language: Comoran Communication Ability: Effective Visual Impairment: No Limitations Hearing Ability: Normal 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 Beliefs That Will Affect Care: None marital status: Single Current Living Situation: Spouse current occupational status: retired How many Children do You have: 2 Feels Safe at Home: Yes Childhood Exposure to Second-Hand Smoke: No Diet Comment: regular caffeine: No during the past year weight has: remained stable Dental Care, Regularly: No Physical Activity Frequency: 1-2 Times per Week Seatbelt Use: always Sunscreen Use: No Assistive Devices: Cane and Oxygen - at Night Review of Systems Review of Systems: All systems reviewed & are unremarkable except as noted in HPI & below Physical Exam Physical Exam: General Examination: Constitutional: Well developed overweight person in no acute distress. HENT: Normal exam with inspection. CV: Hearth rhythm is regular. Neck: Supple, bilsteral carotid bruits. Lungs: Non-labored and comfortable breathing. Abdomen: Soft, non-tender, non-distended. Skin: No rash or ecchymosis. Extremities: No edema or cyanosis NEUROLOGICAL EXAMINATION: Mental Status: Alert and oriented to place, person and time. Cranial Nerves: II-XII are intact. No nystagmus. Funduscopy: Normal looking optic discs. Motor: 5/5 in all extremities without asymmetry. Tone: Normal without spasticity or rigidity. Sensory: Intact to all sensory modalities. Coordination: No dysmetria with FTN testing. Speech: Fluent. Comprehension is intact. Gait: Normal. No ataxia or abnormal walking pattern. DTRs: 2+ all except knees are 1+. No Babinsky. Results & Data ([facility]) Vital Signs (Past 12 Hours) Vital Signs Temp Pulse Resp BP BP Pulse Ox O2 Del Method 11/12/22 15:20 Room Air 11/12/22 15:09 36.7 C 77 20 169/96 H 95 Room Air 11/12/22 14:43 67 16 113/72 95 Room Air 11/12/22 12:37 63 18 149/77 H 95 Room Air 11/12/22 10:20 78 18 137/70 95 Room Air 11/12/22 10:57 96 11/12/22 07:24 57 L 18 143/83 H 94 Room Air 11/12/22 05:00 53 L 16 114/71 95 Room Air Laboratory Results Laboratory Results - last 24 hr 11/11/22 11/11/22 11/11/22 17:50 17:50 17:50 WBC 5.67 RBC 5.30 Hgb 15.4 POC Hgb Hct 45.2 POC Hct MCV 85.3 MCH 29.1 MCHC 34.1 RDW Std Deviation 41.0 RDW Coeff of Madhuri 13.2 Plt Count 185 MPV 8.9 L Immature Gran % (Auto) 0.5 Neut % (Auto) 68.4 Lymph % (Auto) 19.9 Brooks % (Auto) 6.9 Eos % (Auto) 3.2 Baso % (Auto) 1.1 Neut # (Auto) 3.88 Lymph # (Auto) 1.13 L Brooks # (Auto) 0.39 Eos # (Auto) 0.18 Baso # (Auto) 0.06 Immature Gran # (Auto) 0.03 PT 10.9 INR 1.0 APTT 25.5 PTT Ratio 0.9 POC Sodium Sodium 136 POC Potassium Potassium 4.0 POC Chloride Chloride 101 Carbon Dioxide 31 POC Total CO2 Anion Gap 4 POC Anion Gap POC BUN BUN 11 Creatinine 0.93 POC Creatinine Est Cr Clr Drug Dosing Not Reportable Est GFR ( Amer) 97.4 Est GFR (Non-Af Amer) 84.1 BUN/Creatinine Ratio 11.8 Glucose 100 H POC Glucose (other) Estimat Average Glucose Hemoglobin A1c Calcium 10.1 POC Ioniz Calcium Shey Total Bilirubin 0.6 AST 10 L ALT 17 Alkaline Phosphatase 66 Troponin I High Sens 4.0 Total Protein 8.0 Albumin 4.8 Globulin 3.2 Albumin/Globulin Ratio 1.5 Triglycerides Cholesterol LDL Cholesterol, Calc VLDL Cholesterol, Calc HDL Cholesterol Cholesterol/HDL Ratio SARS-CoV-2, RNA, NAAT 11/11/22 11/11/22 11/12/22 17:55 18:05 04:41 WBC 5.65 RBC 4.85 Hgb 14.2 POC Hgb 16.3 Hct 41.9 L POC Hct 48 MCV 86.4 MCH 29.3 MCHC 33.9 RDW Std Deviation 41.8 RDW Coeff of Madhuri 13.3 Plt Count 163 MPV 8.9 L Immature Gran % (Auto) 0.4 Neut % (Auto) 61.1 Lymph % (Auto) 24.8 Brooks % (Auto) 8.7 Eos % (Auto) 4.1 Baso % (Auto) 0.9 Neut # (Auto) 3.46 Lymph # (Auto) 1.40 Brooks # (Auto) 0.49 Eos # (Auto) 0.23 Baso # (Auto) 0.05 Immature Gran # (Auto) 0.02 PT INR APTT PTT Ratio POC Sodium 138 Sodium POC Potassium 4.1 Potassium POC Chloride 99 L Chloride Carbon Dioxide POC Total CO2 29 Anion Gap POC Anion Gap 15.0 L POC BUN 9 BUN Creatinine POC Creatinine 0.8 Est Cr Clr Drug Dosing Est GFR ( Amer) Est GFR (Non-Af Amer) BUN/Creatinine Ratio Glucose POC Glucose (other) 100 H Estimat Average Glucose Hemoglobin A1c Calcium POC Ioniz Calcium Shey 1.15 Total Bilirubin AST ALT Alkaline Phosphatase Troponin I High Sens Total Protein Albumin Globulin Albumin/Globulin Ratio Triglycerides Cholesterol LDL Cholesterol, Calc VLDL Cholesterol, Calc HDL Cholesterol Cholesterol/HDL Ratio SARS-CoV-2, RNA, NAAT NEGATIVE 11/12/22 11/12/22 04:41 04:41 WBC RBC Hgb POC Hgb Hct POC Hct MCV MCH MCHC RDW Std Deviation RDW Coeff of Madhuri Plt Count MPV Immature Gran % (Auto) Neut % (Auto) Lymph % (Auto) Brooks % (Auto) Eos % (Auto) Baso % (Auto) Neut # (Auto) Lymph # (Auto) Brooks # (Auto) Eos # (Auto) Baso # (Auto) Immature Gran # (Auto) PT INR APTT PTT Ratio POC Sodium Sodium 138 POC Potassium Potassium 4.1 POC Chloride Chloride 104 Carbon Dioxide 28 POC Total CO2 Anion Gap 6 POC Anion Gap POC BUN BUN 9 Creatinine 0.77 POC Creatinine Est Cr Clr Drug Dosing 107.1 Est GFR ( Amer) 108.1 Est GFR (Non-Af Amer) 93.2 BUN/Creatinine Ratio 11.7 Glucose 84 POC Glucose (other) Estimat Average Glucose 126 Hemoglobin A1c 6.0 H Calcium 9.5 POC Ioniz Calcium Shey Total Bilirubin AST ALT Alkaline Phosphatase Troponin I High Sens Total Protein Albumin Globulin Albumin/Globulin Ratio Triglycerides 127 Cholesterol 153 LDL Cholesterol, Calc 92 VLDL Cholesterol, Calc 25 HDL Cholesterol 36 Cholesterol/HDL Ratio 4.3 SARS-CoV-2, RNA, NAAT Diagnostic Findings Head CTA 11/11/22 17:35 CT angio head wo/w, CT angio neck with con CT angio head wo/w, CT angio neck with con CLINICAL HISTORY: 67 years-old Male with Sudden onset headache and vision loss. Acute strokelike symptoms COMPARISON STUDY: Head CT 07/05/2013, brain MRI 08/10/2013 TECHNIQUE: Unenhanced axial CT scan of the brain is performed. Subsequently, following the IV administration of 113 cc of Optiray, CT angiogram of the head and neck was performed from the aortic arch to the skull apex. Images are reviewed in the axial, sagittal, and coronal planes. 3-D MIPS images are created and assessed. IV contrast was administered without complication. All measurements were obtained according to NASCET criteria. A dose lowering technique was utilized adhering to the principles of ALARA. CT DOSE: 1291.30 mGy.cm FINDINGS: CT BRAIN: There is no acute intracranial hemorrhage, midline shift, hydrocephalus, intracranial mass, territorial ischemia or abnormal extra-axial collections. No abnormal intra-axial or extra-axial enhancement. Mild involutional changes. Mastoid air cells and middle ear cavities are clear. No calvarial fracture. Mild mucosal thickening of the paranasal sinuses. Prior bilateral lens repair. CT ANGIOGRAM OF THE HEAD AND NECK: Three-vessel morphology of the thoracic aortic arch. Patency of the innominate and imaged subclavian arteries. The common carotid arteries are patent. Extensive atherosclerotic plaque of the right carotid bulb and proximal right ICA results in high-grade greater than 70% stenosis of the proximal cervical segment left ICA. Moderate stenosis of the left carotid bulb and proximal left ICA results in 60% narrowing of the proximal left ICA. Additional at least moderate atherosclerosis of the cavernous, clinoid and supraclinoid segments of the internal carotid arteries. The bilateral anterior and middle cerebral arteries are also patent. Dominant left vertebral artery. There is a least 50% stenosis involving portions of the V2 segment secondary to degenerative spurring of the cervical spine, notably at the C3-C4 level. There is at least moderate stenosis at the origin of the right vertebral artery. Basilar artery is patent. origin of the posterior cerebral arteries. There is no aneurysm, high- grade stenosis, or proximal branch occlusion identified. Dural sinuses appear patent. Lung apices are clear. Prior median sternotomy. Unremarkable soft tissues. Degenerative changes of the cervical spine. IMPRESSION: 1. No acute intracranial abnormality. 2. Extensive atherosclerotic plaque of the right carotid bulb and proximal right ICA results in high-grade near occlusive stenosis of the proximal right ICA. 3. 60% stenosis of the proximal cervical segment left ICA. 4. There is at least moderate stenosis at the origin of the right vertebral artery. ACT 112: Negative or not required by law. The above report was generated using voice recognition software. It may contain grammatical, syntax or spelling errors. Electronically signed by: Pablo Lambert M.D. 11/11/2022 6:54 PM Neck CTA 11/11/22 17:35 CT angio head wo/w, CT angio neck with con CT angio head wo/w, CT angio neck with con CLINICAL HISTORY: 67 years-old Male with Sudden onset headache and vision loss. Acute strokelike symptoms COMPARISON STUDY: Head CT 07/05/2013, brain MRI 08/10/2013 TECHNIQUE: Unenhanced axial CT scan of the brain is performed. Subsequently, following the IV administration of 113 cc of Optiray, CT angiogram of the head and neck was performed from the aortic arch to the skull apex. Images are reviewed in the axial, sagittal, and coronal planes. 3-D MIPS images are created and assessed. IV contrast was administered without complication. All measurements were obtained according to NASCET criteria. A dose lowering technique was utilized adhering to the principles of ALARA. CT DOSE: 1291.30 mGy.cm FINDINGS: CT BRAIN: There is no acute intracranial hemorrhage, midline shift, hydrocephalus, intracranial mass, territorial ischemia or abnormal extra-axial collections. No abnormal intra-axial or extra-axial enhancement. Mild involutional changes. Mastoid air cells and middle ear cavities are clear. No calvarial fracture. Mild mucosal thickening of the paranasal sinuses. Prior bilateral lens repair. CT ANGIOGRAM OF THE HEAD AND NECK: Three-vessel morphology of the thoracic aortic arch. Patency of the innominate and imaged subclavian arteries. The common carotid arteries are patent. Extensive atherosclerotic plaque of the right carotid bulb and proximal right ICA results in high-grade greater than 70% stenosis of the proximal cervical segment left ICA. Moderate stenosis of the left carotid bulb and proximal left ICA results in 60% narrowing of the proximal left ICA. Additional at least moderate atherosclerosis of the cavernous, clinoid and supraclinoid segments of the internal carotid arteries. The bilateral anterior and middle cerebral arteries are also patent. Dominant left vertebral artery. There is a least 50% stenosis involving portions of the V2 segment secondary to degenerative spurring of the cervical spine, notably at the C3-C4 level. There is at least moderate stenosis at the origin of the right vertebral artery. Basilar artery is patent. origin of the posterior cerebral arteries. There is no aneurysm, high- grade stenosis, or proximal branch occlusion identified. Dural sinuses appear patent. Lung apices are clear. Prior median sternotomy. Unremarkable soft tissues. Degenerative changes of the cervical spine. IMPRESSION: 1. No acute intracranial abnormality. 2. Extensive atherosclerotic plaque of the right carotid bulb and proximal right ICA results in high-grade near occlusive stenosis of the proximal right ICA. 3. 60% stenosis of the proximal cervical segment left ICA. 4. There is at least moderate stenosis at the origin of the right vertebral artery. ACT 112: Negative or not required by law. The above report was generated using voice recognition software. It may contain grammatical, syntax or spelling errors. Electronically signed by: Pablo Lambert M.D. 11/11/2022 6:54 PM Chest X-Ray 11/11/22 19:02 XR chest 1V portable HISTORY: 67 years-old Male CVA acute strokelike symptoms COMPARISON: 06/09/2021 TECHNIQUE: AP view of the chest FINDINGS: Cardiac mediastinal and hilar silhouettes are unchanged. Prior median sternotomy. No pneumothorax, pleural effusion, airspace consolidation or pulmonary edema. Bones appear grossly intact. IMPRESSION: No acute process. ACT 112: Negative or not required by law. The above report was generated using voice recognition software. It may contain grammatical, syntax or spelling errors. Electronically signed by: Pablo Lambert M.D. 11/11/2022 7:19 PM
--- NOTE | 2022-11-12 20:44 | Billing Data ---
Date of Service November 12, 2022 Coding Level of Care Code 83144 INT INP/OBS CARE
--- NOTE | 2022-11-12 20:49 | CT Scan Report ---
CT SCAN OF THE BRAIN WITHOUT IV CONTRAST CLINICAL HISTORY: Headache. Strokelike symptoms. COMPARISON STUDY: CT of the brain dated 11/11/2022. TECHNIQUE: Unenhanced axial CT scan of the brain is performed from the vertex to the skull base. A do se lowering technique was utilized adhering to the principles of ALARA. CT DOSE: 884.08 mGy.cm FINDINGS: Brain parenchyma: There is age-related involutional change noting mild subcortical and periventricula r microangiopathic disease. There is no hemorrhage, mass effect, or evidence of acute territorial isc hemia by CT criteria. Tripathi-white matter differentiation is preserved. No extra-axial fluid collection is seen. Ventricles, sulci, cisterns: Prominent secondary to involutional change. Intracranial vasculature: There is atherosclerotic calcification of the cavernous carotid and vertebr al arteries. Calvarium: Unremarkable. Sinuses and mastoids: Moderate mucosal thickening is seen throughout the ethmoid sinuses and in the r ight sphenoid sinus. There is mild mucosal thickening within the maxillary antra. The mastoid air svetlana ls are well pneumatized. Orbits: The bony orbits are grossly intact. There are bilateral ocular lens implants. IMPRESSION: There is no hemorrhage, mass effect, or evidence of acute territorial ischemia by CT crit eria. No change from yesterday. ACT 112: Negative or not required by law. Electronically signed by: Aakash Estrada M.D. 11/12/2022 8:47 PM
[2022-11-12] MEDS ORDERED: POLYETHYLENE (MIRALAX) 17 GM PACK PO ONE (20:53)
[2022-11-12] MEDS ORDERED: ACETAMINOPHEN 325 MG TAB PO PRN (21:30)
[2022-11-13 06:38] LABS: Basophils # (auto) 0.05 K/uL (0-0.2); Basophils % (auto) 0.9 %; Eosinophils # (auto) 0.27 K/uL (0-0.50); Eosinophils % (auto) 5.1 %; Hematocrit (blood only) 44.7 % (42.0-52.0); Hemoglobin 15.2 g/dl (14.0-18.0); Immature Granulocytes # (auto) 0.02 K/uL (0.01-0.20); Immature Granulocytes % (auto) 0.4 %; Lymphocytes # (auto) 1.32 K/uL (1.2-3.4); Lymphocytes % (auto) 24.7 %; Mean Corpuscular Hemoglobin 29.2 pg (25.0-34.0); Mean Corpuscular Volume 85.8 fL (80.0-100.0); Mean Platelet Volume 8.8 fL (9.4-12.4); Monocytes % (auto) 9.4 %; Neutrophils # (auto) 3.18 K/uL (1.40-6.50); Neutrophils % (auto) 59.5 %; Platelet Count 182 K/uL (130-400); RDW Coefficient of Variation 13.3 % (11.5-14.5); RDW Standard Deviation 41.8 fL (36.4-46.3); Red Blood Count 5.21 M/uL (4.70-6.10); White Blood Count 5.34 K/ul (4.8-10.8)
[2022-11-13 06:57] LABS: Calcium 9.7 mg/dl (8.5-10.1); Potassium 3.8 mmol/L (3.5-5.1)
[2022-11-13 07:03] LABS: BUN Creatinine Ratio 14.9 (10-20); Creatinine Clr Calc Pharmacy 87.7 ml/min; Est GFR (African American) 96.2 ml/min
[2022-11-13] MEDS: FLUTICASONE FUROATE 100MCG 14 PUFFS/INHALER INH SCH (08:52)
[2022-11-13] MEDS: UMECLIDINIUM/VILANTEROL 62.5/25MCG 7 PUFFS/INHALER INH SCH (08:53)
[2022-11-13] MEDS: DOCUSATE SODIUM 100 MG CAP PO SCH (08:53)
[2022-11-13] MEDS: FLUTICASONE PROPIONATE NA SPR 16 GM BTL NAE SCH (08:53)
[2022-11-13] MEDS: ASPIRIN 81 MG ECTAB PO SCH (08:53)
[2022-11-13] MEDS: DOXAZosin MESYLATE 4 MG TAB PO SCH (08:54)
[2022-11-13] MEDS: buprenorphine HCL 8 MG SUBL SL SCH (08:56)
[2022-11-13] MEDS: CLOPIDOGREL BISULFATE 75 MG TAB PO SCH (09:39)
[2022-11-13] MEDS ORDERED: STROKE PATIENT DISCHARGE STA (10:43)
--- NOTE | 2022-11-13 15:40 | Discharge Summary ---
Date of Service November 13, 2022 Admission HPI Per Admitting Provider This is 67-year-old male with a history of of cerebrovascular disease, carotid artery stenosis COPD, HFpEF, hypertension, type 2 diabetes, moderate SHARRON who presented to [facility] for evaluation of headache, visual disturbance, and dizziness. Patient is a very pleasant but somewhat difficult historian. He said he was in his normal health up until earlier this afternoon, when he was at [facility] and developed an acute onset frontal headache. He said shortly thereafter, he developed blurry vision. Unfortunately, he is unable to elaborate on this furtherhe does not know if it was 1 side, both sides. He describes any flashers or floaters. He says that his vision just looked "blurry. "He also said throughout this time that he felt dizzy. He is also unable to elaborate on this more, but he thinks maybe it felt like the room was spinning. He then proceeded to drive home. He said that the symptoms resolved about an hour thereafter. He continues to have a headache throughout this time. He denies any nausea or vomiting. Denies any palpitations. He does say that he is being followed by his collar baster jumpbasting and has had transient vision loss in the past similar to this event. He reportedly had a cardiac specialist study performed, but does not know the results. In the ER, patient was found to be hemodynamically stable. Admission labs revealing blood pressure 150/80, heart rate 86, saturating well on room air. Admission labs revealing BUN 11/creatinine 0.9. CTA of the head and neck demonstrated "extensive atherosclerotic plaque of the right carotid bulb and proximal right ICA results in high-grade near occlusive stenosis of the proximal right ICA. 60% stenosis of the proximal cervical segment of the left ICA. At least moderate stenosis at the origin of the right vertebral artery. "Chest x- ray did not demonstrate acute process. He was given aspirin 324 and Plavix 300mg daily. ---- This documentation was created utilizing dictation software. As such, syntax, grammatical, and word-choice errors may be present. Notes are screened prior to submission in an attempt to reduce these errors. If there are any questions or concerns, please contact the author directly for clarification. Principal Diagnosis carotid stenosis Discharge Exam The patient is awake, alert and oriented 3, well developed and well nourished, normocephalic and atraumatic, lying in bed and in no acute distress. HEENT--PERRL, EOMI, mucous membranes and oropharynx mildly dry Neck--supple. No JVD. No bruits. Thyroid normal, trachea midline, no adenopathy. Heart--normal S1 and S2. No murmurs, rubs or gallops. Lungs--clear bilaterally, no respiratory distress, no accessory muscle use. Abdomen--normal bowel sounds and soft. Mild epigastric and left sided abdominal pain Extremities--no cyanosis or clubbing. No edema. Dermatologic--normal skin turgor, normal color, no abnormal lymph nodes, no rash. Neurologic--cranial nerves II through XII grossly intact. Rheumatologic--normal range of motion. Psychiatric--normal affect. Discharge Data Allergies Allergy/AdvReac Type Severity Reaction Status Date / Time meloxicam Allergy Unknown UNKNOWN Verified 11/11/22 20:43 simvastatin Allergy Unknown UNKNOWN Verified 11/11/22 20:43 buprenorphine [From Suboxone] AdvReac Intermediate Wheezing Verified 11/11/22 20:43 naloxone [From Suboxone] AdvReac Intermediate Wheezing Verified 11/11/22 20:43 celecoxib AdvReac Mild GI PROBLEMS Verified 11/11/22 20:43 morphine AdvReac Unknown ITCHY, Verified 11/11/22 20:43 CONFUSION,AGITIATION atorvastatin AdvReac MYALGIA Verified 11/11/22 20:43 Consultations 11/11/22 19:14 ED Decision to Admit Stat 11/11/22 20:33 Consult Vascular Surgery Routine 11/11/22 22:58 Consult Neurology Routine Ordered Studies 11/11/22 17:35 CT angio head wo/w Stat CT angio neck with con Stat 11/12/22 17:47 CT head/brain wo con Routine Hospital Course (1) TIA (transient ischemic attack): This is 67-year-old male with a history of of cerebrovascular disease, carotid artery stenosis COPD, HFpEF, hypertension, type 2 diabetes, moderate SHARRON who presented to [facility] for evaluation of stroke like symptoms, which completely resolved upon arrival at the ED, but subsequently found to have evidence of complete R ICA occlusion, 60% stenosis of the L ICA. Patient presenting with FLORES and transient vision distortion (blurriness) and dizziness (?vertigo) that have since resolved CTA head neck demonstrating extensive plaque in the right carotid bulb and high-grade/near stenosis in the proximal right ICA; 60% stenosis of the proximal left ICA. Received aspirin 324 and Plavix 300 in the ED Raise atorvastatin dose to 80 mg daily Neurology consulted in the ED who gave recommendations on medical management above Vascular surgery consulted, plan is for CEA or stent placement TTE shows EF 60-65%, no wall motion abnormalities MRI has been ordered, but patient unable to tolerate MRI, even when he was offered mild sedation. MRI will be cancelled (2) Carotid artery stenosis: Severe high-grade stenosis in the proximal right ICA, 60% stenosis in the proximal left ICA In the setting of TIA, appreciate vascular surgery input on need for procedural intervention/endarterectomy Continue aspirin, Plavix, and atorvastatin (3) COPD (chronic obstructive pulmonary disease): No acute needs at this time, continue Trelegy (4) Diastolic heart failure: Status post CABG with RODRIGUEZ to LAD and EDWARD to RCA; repeat catheterization in 2 014 demonstrating patent bypass grafts (5) Gastroesophageal reflux disease: Continue PPI (6) Moderate obstructive sleep apnea: CPAP while here (7) Hypertension: Hold lisinopril, amlodipine in setting of permissive hypertension (8) Opioid use disorder: History of, in remission, controlled w/ scheduled Subutex Plan Code: Full code Prophylaxis: SCDs Dispo continue hospitalization Total Time Total Time Spent Total Time Spent (In Minutes): 35 Discharge Plan Discharge Items Patient Disposition: Home - Self-Care Reason For Visit: TIA Discharge Diagnosis: carotid stenosis Activity: Resume your previous activity Non-emergency contact: Primary Care Provider, Surgeon and Neurologist Call non-emergency contact if: you have any medication questions and your symptoms worsen Follow-up/Referrals: Kala Vargas DO [Primary Care Provider] - Diet: Regular Addtl Attending Provider Instructions: please make appointment to follow up with vascular surgery as soon as possible and also follow up with neurology in 1 month Pending Studies at Discharge: No Stand-Alone Forms: [employer], Smoking Cessation Medications and DC Order Prescriptions: New atorvastatin 40 mg Tablet 80 mg PO QPM 30 Days Qty: 60 0RF clopidogrel 75 mg Tablet 75 mg PO QAM 30 Days Qty: 30 0RF Continued amlodipine 10 mg tablet 10 mg PO DAILY Qty: 90 3RF lisinopril 10 mg tablet 10 mg PO DAILY Qty: 90 1RF Trelegy Ellipta 100-62.5-25 mcg blister with device 1 inh inhalation DAILY Qty: 90 3RF doxazosin 4 mg tablet 4 mg PO DAILY Qty: 90 1RF atenolol 50 mg tablet 50 mg PO DAILY Qty: 90 1RF fluticasone propionate [Flonase Allergy Relief] 50 mcg/actuation spray,suspension 2 spray intranasal DAILY Qty: 16 2RF Rx Instructions: administer into each nostril aspirin 81 mg tablet,delayed release (DR/EC) 81 mg PO QAM polyethylene glycol 3350 17 gram/dose powder 17 g PO DAILY PRN (Reason: Constipation) Qty: 1530 calcium carbonate-vitamin D3 [Calcium 600 with Vitamin D3] 600 mg-12.5 mcg (500 unit) capsule 1 cap PO DAILY docusate sodium 100 mg capsule 100 mg PO BID buprenorphine HCl 8 mg tablet, sublingual 8 mg SL TID Rx Instructions: 8 mg SL 3 X DAILY UNDER TONGUE Discontinued atorvastatin 40 mg tablet 40 mg PO QPM Qty: 90 1RF Rx Instructions: TAKE ONE TABLET BY MOUTH EVERY DAY. Discharge Orders: Discharge Order (Routine); Ordered 11/13/22 Ordered By: Cira Guerra/Other Patient Handouts: Managing Type 2 Diabetes Admission Data Admit Date/Time: 11/11/22 20:26 Attending Provider: Cira Harrington Admit Provider: Kurt Cortes Primary Care Provider: Kala Vargas Other Providers: Alexander Juarez ; Rafal Whyte ; Dilan Gautam Other Interventions: Discharge Summary Assessment (RN) Last Done: 11/13/22 10:54 Coding Level of Care Code HOSP INP/OBS DISCH >30 MIN Diagnoses TIA (transient ischemic attack) G45.9 Carotid artery stenosis I65.29 COPD (chronic obstructive pulmonary disease) J44.9 Diastolic heart failure I50.30 Gastroesophageal reflux disease K21.9 Moderate obstructive sleep apnea G47.33 Hypertension I10 Opioid use disorder F11.90 Time Spent (min) 35
== END 2022-11-13 12:21 | disposition home or self-care (01) | DRG 69 ==
LOC: ED 17:28 → EDINP 20:26 → SUATTDRO 20:26 → 2E 22:59

== ENCOUNTER 2022-12-13 05:55 | Inpatient (IN) ==
--- NOTE | 2022-11-17 10:56 | Anesthesiology Consultation ---
Date of Service November 17, 2022 Assessment & Plan (1) Encounter for pre-operative examination: Chart Review Chart Review: Acceptable Risk for Surgery and Patient NOT seen in Pre Admission Testing Pt was seen by Cardio for regular f/u 10/19/22. Pt was noted to have 2 episodes of b/l vision loss (several minutes before resolving) over previous 1month. Cardio ordered Carotid US and Zio Monitor. Zio Monitor completed 10/29/22: 'NSR with avg HR if 66 bpm. No sustained or concerning dysrhythmias. 2 episodes of SVT noted, but p waves were visible, rhythm regular. No PAF.' Pt was instructed to f/u as scheduled end of Nov with Cardio. Carotid 10/20/22: 70-99% stenosis R ICA. L was nor properly imaged 2/2 pt noncompliance. Pt was instructed by cardio to go to ED immediately if any episodes of vision loss and plan was in process for CTA neck for additional imaging. Pt then had episode of vision loss and presented to [facility] ED 11/11/22. Inpt 11/11-11/13/22: Pt seen by Neuro and Vascular and additional head/neck imaging completed. Neuro did not feel that sx of vision changes and FLORES were r/t his RICARDO but due to severe R ICA stenosis, intervention recommended. ASA 81mg continued, Plavix initiated, statin increased in preparation for surgery per Neurology note from pt's recent inpatient stay: Because of significant atherosclerotic disease and carotid artery stenosis, we should avoid hypotension. Until vascular surgery, we do recommend keeping systo lic blood pressure between 130-150. Please see nurse note, Re: pt's fear of intubation/extubation COVID screening: Per PAT nursing assessment on 11/17/22, No known COVID-19 positive contacts or current COVID-19 related symptoms. Travel screen negative. Patient vaccinated for Covid. At surgeon discretion if preop Covid testing being done. Pt did have NEG covid test while inpt 11/11/22 History Surgery Operation Date: 11/22/22 09:45 Proposed Procedures p Right Transcarotid Artery Revascularization - Alexander Juarez MD Height/Weight Height: 5 ft 8 in Weight: 103.419 kg Allergies Allergy/AdvReac Type Severity Reaction Status Date / Time meloxicam Allergy Unknown UNKNOWN Verified 11/17/22 09:03 simvastatin Allergy Unknown UNKNOWN Verified 11/17/22 09:03 buprenorphine [From Suboxone] AdvReac Intermediate Wheezing Verified 11/17/22 09:03 naloxone [From Suboxone] AdvReac Intermediate Wheezing Verified 11/17/22 09:03 celecoxib AdvReac Mild GI PROBLEMS Verified 11/17/22 09:03 morphine AdvReac Unknown ITCHY, Verified 11/17/22 09:03 CONFUSION,AGITIATION atorvastatin AdvReac MYALGIA Verified 11/17/22 09:03 Medications Home Medications Medication Instructions Recorded Confirmed Last Taken aspirin 81 mg tablet,delayed 81 mg PO QAM 03/07/19 11/17/22 05/09/19 07:00 release polyethylene glycol 3350 17 17 g PO DAILY PRN Constipation 03/24/20 11/17/22 Unknown gram/dose oral powder #1,530 grams buprenorphine HCl 8 mg sublingual 8 mg sublingual TID 11/11/22 11/17/22 Unknown tablet atorvastatin 40 mg tablet 80 mg PO QPM 30 days #60 tabs 11/13/22 11/17/22 Unknown clopidogrel 75 mg tablet 75 mg PO QAM 30 days #30 tabs 11/13/22 11/17/22 Unknown acetaminophen 500 mg tablet 1,000 mg PO TID 11/17/22 11/17/22 Unknown amlodipine 10 mg tablet 10 mg PO QAM 11/17/22 11/17/22 Unknown atenolol 50 mg tablet 50 mg PO QAM 11/17/22 11/17/22 Unknown bisacodyl 5 mg tablet,delayed 10 mg PO HS 11/17/22 11/17/22 Unknown release (Dulcolax (bisacodyl)) cholecalciferol (vitamin D3) 50 50 mcg PO QPM 11/17/22 11/17/22 Unknown mcg (2,000 unit) capsule (Vitamin D3) doxazosin 4 mg tablet 4 mg PO QPM 11/17/22 11/17/22 Unknown fluticasone fur. 100 mcg-umeclid 1 inh inhalation QAM 11/17/22 11/17/22 Unknown 62.5 mcg-vilant 25 mcg inhalat.powder (Trelegy Ellipta) fluticasone propionate 50 2 spray intranasal QAM 11/17/22 11/17/22 Unknown mcg/actuation nasal spray,suspension (Flonase Allergy Relief) lisinopril 10 mg tablet 10 mg PO QAM 11/17/22 11/17/22 Unknown Past Medical History Medical History (Updated 11/17/22 @ 12:23 by Norma Mitchell PA-C) Antiplatelet or antithrombotic long-term use pt d/c 11/13/22 on plavix BPH (benign prostatic hyperplasia) CAD (coronary artery disease) CABG x 2 (RODRIGUEZ-LAD, EDWARD-RCA) 2001; cath 2013 showed patent grafts. scheduled for repeat cath 2021 but did not proceed 11/11 anxiety. pt did not r/s. Seen by cardio 10/2022: 'hx of stable exertional angina which has not changed or increased' Carotid artery stenosis severe (string sign) R ICA stenosis noted on CTA neck 11/2022. also with 60% LICA stenosis Chronic constipation Chronic leg pain 11/11 OA Chronic osteoarthritis chronic pain s/p b/l TKA; pt follows with pain management COPD (chronic obstructive pulmonary disease) controlled with trelegy Degenerative disc disease Depression with anxiety Diverticulosis Dyslipidemia atorvastatin dosage increased from 40mg to 80mg 11/2022 Dyspepsia Fear of awareness under general anesthesia Pt had trauma as a child and does NOT want to be awake during intubation or extubation Per phone conversation- 11/17/22- did explain that patient's are usually not aware during intubation (pt has no known hx of difficult intubation) and ideally are not aware of extubation unless there are complications. Pt had knee scope done 05/09/19 without noted issues with GA (LMA used) Gastroesophageal reflux disease Hemorrhoids Hypertension Insomnia Moderate obstructive sleep apnea DOES NOT TOLERATE CPAP. home O2 1.5-2 L qHS at home; was on CPAP during 11/2022 hospitalization Nephrolithiasis On home oxygen therapy 1.5-2 LPM QHS (due to noncompliant with CPAP) Opioid use disorder pt with hx of rx opioid dependence; now following with pain mgmt and using suboxone TIA (transient ischemic attack) inpatient 11/11/22-11/13/22 [facility] for 'possible TIA'. found to have severe R carotid stenosis. per neuro, sx 'likely cerebral hypoperfusion' and per vascular, sx likely not caused by carotid stenosis Type 2 diabetes mellitus diet controlled; 11/2022 Ha1c: 6.0% Ureteral colic Vitamin D deficiency on supplement Past Family History Family History Brother Lung disease Diabetes Coronary heart disease Sister Diabetes Brain cancer Mother Diabetes Myocardial infarction Ovarian cancer Father Myocardial infarction Denies family history of Prostate cancer Breast cancer Lung cancer Colorectal cancer Past Surgical History Surgical History History of appendectomy History of cardiac cath 8-10 YEARS AGO - [facility] - CP - NO STENTS/ANGIOPLASTY 2000 - [facility] --> CABG History of cataract surgery BILATERAL History of coronary artery bypass graft (2000) 2000 - 2 VESSELS - [facility] - FOLLOWS W/ DR. JUSTICE History of cystoscopy History of lithotripsy History of tonsillectomy History of tooth extraction S/P right knee arthroscopy (05/09/19) Status post total left knee replacement Status post total right knee replacement Social History Smoking Status: Never smoker tobacco type: smokeless tobacco Do You Dip or Chew Tobacco: Yes (1.5 cans per day) Hx Alcohol Use: No Hx Substance Use: Yes ("I was hooked on prescribed percocets years ago") substance use type: does not use Lab Results Anesthesia Preop Results Results Anesthesia Widget: WBC 5.34 K/ul (4.8-10.8) 11/13/22 Hgb 15.2 g/dl (14.0-18.0) 11/13/22 Hct 44.7 % (42.0-52.0) 11/13/22 Plt 182 K/uL (130-400) 11/13/22 Na 137 mmol/L (136-145) 11/13/22 K 3.8 mmol/L (3.5-5.1) 11/13/22 Cl 103 mmol/L (98-107) 11/13/22 CO2 27 mmol/L (21-32) 11/13/22 BUN 14 mg/dl (6-23) 11/13/22 Creat 0.94 mg/dl (0.6-1.4) 11/13/22 Glucose Level 103 mg/dl (70-99(Fasting)) H 11/13/22 PT 10.9 Seconds (9.0-12.0) 11/11/22 PTT 25.5 Seconds (21.0-31.0) 11/11/22 INR 1.0 (0.9-1.1) 11/11/22 HA1c 6.0 % (4.5-5.6) H 11/12/22 SARS-CoV-2, RNA, NAAT NEGATIVE (NEGATIVE) 11/11/22 Testing Electrocardiogram Date: 11/11/22 SB 59bpm. no change from 04/2019 Chest X-Ray Date: 11/11/22 Findings: + NAD Echocardiogram Date: 11/12/22 EF: 60-65% LV Function: normal RWMA: + none Valvular Disease: + no significant valvular disease Mild LA dilation. borderline WALI. No shunt. Other Testing CT brain without contrast 11/12/22: No hemorrhage, mass effect, or evidence of acute territorial ischemia by CT criteria. No change from yesterday. Head/Neck CTA 11/11/22: -No acute intracranial abnormality. -Extensive atherosclerotic plaque of the right carotid bulb and proximal right ICA results in high-grade near occlusive stenosis of the proximal right ICA. -60% stenosis of the proximal cervical segment left ICA. -There is at least moderate stenosis at the origin of the right vertebral artery.
--- NOTE | 2022-12-11 12:32 | History & Physical Report ---
Date of Service December 11, 2022 Assessment & Plan (1) Stenosis of right carotid artery: Plan: Patient is essentially asymptomatic from his right ICA stenosis at this time, however, his imaging does demonstrate a "string sign." This is concerning as this puts him at significantly increased risk of right hemispheric CVA. We discussed surgical intervention options including carotid endarterectomy as well as TCAR. Patient prefers to undergo TCAR and appears to be a candidate for this based on his imaging. The procedure risks benefits and alternatives were discussed at length with the patient. Patient expresses understanding and agreement to proceed. History of Present Illness Chief Complaint: Right internal carotid artery stenosis Primary Care Provider: Kala Vargas DO Mr. Waterman is a middle-age male who presents to Dr. Juarez's vascular surgery clinic today for a follow-up appointment regarding his severe right ICA stenosis. This was noted during a hospital stay last week after he arrived with some bilateral vision changes and balance problems. He was having some associated headaches as well. CTA of the neck demonstrated a severe stenosis of his right ICA "string sign". Due to the severity of the stenosis and his significantly increased risk for a right hemispheric CVA, it was recommended that he consider undergoing intervention for this. At the time patient preferred to discuss with his family and then come in the office here to discuss further. Patient states that he has been doing better with the headaches and not had any more vision changes since last weekend and he has been taking Tylenol for the headaches which works well. He denies any other new symptoms at this time. He states he is ready to discuss surgery. Allergies Allergy/AdvReac Type Severity Reaction Status Date / Time meloxicam Allergy Unknown UNKNOWN Verified 12/02/22 10:12 simvastatin Allergy Unknown UNKNOWN Verified 12/02/22 10:12 buprenorphine [From Suboxone] AdvReac Intermediate Wheezing Verified 12/02/22 10:12 naloxone [From Suboxone] AdvReac Intermediate Wheezing Verified 12/02/22 10:12 amitriptyline AdvReac Mild Made HAs Verified 12/06/22 14:05 worse celecoxib AdvReac Mild GI PROBLEMS Verified 12/02/22 10:12 morphine AdvReac Unknown ITCHY, Verified 12/02/22 10:12 CONFUSION,AGITIATION atorvastatin AdvReac MYALGIA Verified 12/02/22 10:12 Home Medications Medication Instructions Recorded Confirmed Type aspirin 81 mg tablet,delayed 81 mg PO QAM 03/07/19 12/02/22 History release polyethylene glycol 3350 17 17 g PO DAILY PRN Constipation 03/24/20 12/02/22 History gram/dose oral powder #1,530 grams buprenorphine HCl 8 mg sublingual 8 mg sublingual TID 11/11/22 12/02/22 History tablet atorvastatin 40 mg tablet 80 mg PO QPM 30 days #60 tabs 11/13/22 12/02/22 Rx clopidogrel 75 mg tablet 75 mg PO QAM 30 days #30 tabs 11/13/22 12/02/22 Rx acetaminophen 500 mg tablet 1,000 mg PO TID 11/17/22 12/02/22 History atenolol 50 mg tablet 50 mg PO QAM 11/17/22 12/02/22 History bisacodyl 5 mg tablet,delayed 10 mg PO HS 11/17/22 12/02/22 History release (Dulcolax (bisacodyl)) cholecalciferol (vitamin D3) 50 50 mcg PO QPM 11/17/22 12/02/22 History mcg (2,000 unit) capsule (Vitamin D3) doxazosin 4 mg tablet 4 mg PO QPM 11/17/22 12/02/22 History fluticasone fur. 100 mcg-umeclid 1 inh inhalation QAM 11/17/22 12/02/22 History 62.5 mcg-vilant 25 mcg inhalat.powder (Trelegy Ellipta) fluticasone propionate 50 2 spray intranasal QAM 11/17/22 12/02/22 History mcg/actuation nasal spray,suspension (Flonase Allergy Relief) lisinopril 10 mg tablet 10 mg PO QAM 11/17/22 12/02/22 History amlodipine 10 mg tablet 10 mg PO QAM #90 tabs 11/29/22 12/02/22 Rx gabapentin 100 mg capsule 200 mg PO HS 30 days #60 caps 12/06/22 Rx Past Med/Surg History Medical History Antiplatelet or antithrombotic long-term use pt d/c 11/13/22 on plavix BPH (benign prostatic hyperplasia) CAD (coronary artery disease) CABG x 2 ([facility]) 2001; cath 2013 showed patent grafts. scheduled for repeat cath 2021 but did not proceed 11/11 anxiety. pt did not r/s. Seen by cardio 10/2022: 'hx of stable exertional angina which has not changed or increased' Carotid artery stenosis severe (string sign) R ICA stenosis noted on CTA neck 11/2022. also with 60% LICA stenosis Chronic constipation Chronic leg pain 11/11 OA Chronic osteoarthritis chronic pain s/p b/l TKA; pt follows with pain management COPD (chronic obstructive pulmonary disease) controlled with trelegy Degenerative disc disease Depression with anxiety Diverticulosis Dyslipidemia atorvastatin dosage increased from 40mg to 80mg 11/2022 Dyspepsia Fear of awareness under general anesthesia Pt had trauma as a child and does NOT want to be awake during intubation or extubation Per phone conversation- 11/17/22- did explain that patient's are usually not aware during intubation (pt has no known hx of difficult intubation) and ideally are not aware of extubation unless there are complications. Pt had knee scope done 05/09/19 without noted issues with GA (LMA used) Gastroesophageal reflux disease Hemorrhoids Hypertension Insomnia Moderate obstructive sleep apnea DOES NOT TOLERATE CPAP. home O2 1.5-2 L qHS at home; was on CPAP during 11/2022 hospitalization Nephrolithiasis On home oxygen therapy 1.5-2 LPM QHS (due to noncompliant with CPAP) Opioid use disorder pt with hx of rx opioid dependence; now following with pain mgmt and using suboxone TIA (transient ischemic attack) inpatient 11/11/22-11/13/22 [facility] for 'possible TIA'. found to have severe R carotid stenosis. per neuro, sx 'likely cerebral hypoperfusion' and per vascular, sx likely not caused by carotid stenosis Type 2 diabetes mellitus diet controlled; 11/2022 Ha1c: 6.0% Ureteral colic Vitamin D deficiency on supplement Surgical History History of appendectomy History of cardiac cath 8-10 YEARS AGO - [facility] - CP - NO STENTS/ANGIOPLASTY 2000 - [facility] --> CABG History of cataract surgery BILATERAL History of coronary artery bypass graft (2000) 2000 - [facility] - [facility] - FOLLOWS W/ DR. JUSTICE History of cystoscopy History of lithotripsy History of tonsillectomy History of tooth extraction S/P right knee arthroscopy (05/09/19) Status post total left knee replacement Status post total right knee replacement Family History Brother Lung disease Diabetes Coronary heart disease Sister Diabetes Brain cancer Mother Diabetes Myocardial infarction Ovarian cancer Father Myocardial infarction Denies family history of Prostate cancer Breast cancer Lung cancer Colorectal cancer Social History Smoking Status: Never smoker Tobacco Type: Smokeless Tobacco (Dip or Chew) Age Started Using Tobacco: 3; Second Hand Exposure: No; Hx Alcohol Use: No Hx Substance Use: Yes ("I was hooked on prescribed percocets years ago") Preferred Language: Swedish Communication Ability: Effective Visual Impairment: No Limitations Hearing Ability: Normal Internet Database Specialist Required: No Beliefs That Will Affect Care: None marital status: Single Current Living Situation: Spouse current occupational status: retired How many Children do You have: 2 Feels Safe at Home: Yes Childhood Exposure to Second-Hand Smoke: No Diet Comment: regular caffeine: No during the past year weight has: remained stable Dental Care, Regularly: No Physical Activity Frequency: 1-2 Times per Week Seatbelt Use: always Sunscreen Use: No Assistive Devices: Glasses and Oxygen - at Night Review of Systems All systems reviewed & are unremarkable except as noted in HPI & below Physical Exam Physical Exam: Constitutional:L WD/WN, vitals as a sher + obese and + combative; not i n distress ENMT: Ears: no hearing i mpairment Neck: trachea midline Respiratory: normal respiratory effort, lungs jose d ar to auscultation Auscultation: + diminished lung so unds Cardiovascular:L Rate/Rhythm: regul ar rate and regula r rhythm Vessels: + carotid bruit, femoral pulses pre sent, posterior ti bial pulses presen t, dorsalis pedis pulses present and radial pulses pre sent; + abnormal p eripheral pulses Extremities: lang l capillary refill ; no edema Gastrointestinal ( Abdomen): Inspection/Auscult ation: abdomen nor mal to inspection and normal bowel s ounds Percussion/ Palpation: abdomen soft; abdomen non tender Musculoskeletal: no cyanosis or clu bbing, extremities motor strength 5/ 5 Skin: no rashes, warm an d dry Neurologic: moves all extremit ies and awake; no focal motor defici ts and not confuse d Psychiatric: A+Ox3, euthymic af fect
[~2022-12-13 05:55] MED LIST changes: -ASPI-435 PO; -ATEN50TA8 PO; -BUPR8SUB19 SL; -DOXA1TAB86 PO; -LISI10TA PO; -LPT/40 PO; +LR 15ML/HR IV SCH; -OXGN; -POLY335019 PO; +SODIUM CHLORIDE 0.9% 1000ML IV SCH; -SYMIN/8045 INH; -VNTHFA/IN INH; +ceFAZolin 2000MG 2,000 MG/15 ML SYR IV SCH
[2022-12-13] MEDS ORDERED: ceFAZolin 2000MG 2,000 MG/15 ML SYR IV SCH (06:00)
[2022-12-13] MEDS ORDERED: LR 15ML/HR IV SCH (06:00)
[2022-12-13 06:44] LABS: BUN Creatinine Ratio 12.8 (10-20); Calcium 9.8 mg/dl (8.5-10.1); Creatinine Clr Calc Pharmacy 93.6 ml/min; Est GFR (African American) 103.3 ml/min; Est GFR (Non-African American) 89.1 ml/min
[2022-12-13] MEDS ORDERED: LIDOCAINE 2% MPF LOCAL 5 ML VIAL INFIL ONE ×2 (06:53→09:13)
[2022-12-13] MEDS ORDERED: ONDANSETRON INJ 2 MG/ML 2 ML VIAL ONE (06:53)
[2022-12-13] MEDS ORDERED: MIDAZOLAM HCL 1 MG/ML 2ML VIAL ONE (06:53)
[2022-12-13] MEDS ORDERED: PROPOFOL IV EMULSION 10 MG/ML 20 ML VIAL IV ONE (06:53)
[2022-12-13] MEDS ORDERED: DEXAMETHASONE SOD INJ 4 MG/ML VIAL ONE (06:53)
[2022-12-13] MEDS ORDERED: fentaNYL citrate 100 MCG/2 ML VIAL ONE ×2 (06:53)
[2022-12-13] MEDS ORDERED: PHENYLEPHRINE HCL 25 MG/250 ML NSS IV ONE (06:57)
[2022-12-13] MEDS ORDERED: GELATIN SPONGE SZ 100 ONE (07:36)
[2022-12-13] MEDS ORDERED: THROMBIN FOR SOLN 20000 UNIT KIT ONE (07:36)
--- NOTE | 2022-12-13 07:39 | History & Physical Bridge Note ---
Date of Service December 13, 2022 History & Physical Bridge Note I have examined the patient, reviewed the History & Physical and in the interval since the performance of the History & Physical I have noted the following changes of clinical significance: no changes noted
[2022-12-13] MEDS ORDERED: LABETALOL HCL IV 5 MG/ML 20ML IV PRN (07:53)
[2022-12-13] MEDS ORDERED: ONDANSETRON INJ 2 MG/ML 2 ML VIAL IV PRN (07:53)
[2022-12-13] MEDS ORDERED: ATROPINE SULFATE 0.1 MG/ML 10ML SYR IV PRN (07:53)
[2022-12-13] MEDS ORDERED: fentaNYL citrate 100 MCG/2 ML VIAL IV PRN (07:53)
[2022-12-13] MEDS ORDERED: SODIUM CHLORIDE 0.9% 1000ML IV SCH (09:00)
[2022-12-13] MEDS ORDERED: HEPARIN SOD (PORCINE) 1000 UNIT/ML ONE (09:13)
[2022-12-13] MEDS ORDERED: ePHEDrine sulfate 50 MG/ML SYR ONE (09:14)
[2022-12-13] MEDS ORDERED: VISIPAQUE IV PRN (09:19)
[2022-12-13] MEDS ORDERED: SURGICEL ABSORB HEMOSTAT 2IN X 14IN TOP ONE (09:21)
[2022-12-13] MEDS ORDERED: ATROPINE SULFATE 1MG/2.5ML SYR ONE (09:23)
[2022-12-13] MEDS ORDERED: GLYCOPYRROLATE 0.2 MG/ML VIAL ONE (09:23)
[2022-12-13] MEDS ORDERED: ceFAZolin 330 MG/ML 1 GM VIAL ONE (09:34)
[2022-12-13] MEDS ORDERED: PROTAMINE SULFATE 10 MG/ML 5 ML VIAL IV ONE (09:35)
[2022-12-13] MEDS ORDERED: SUGAMMADEX SODIUM 200 MG/2 ML VIAL IV ONE (09:41)
[2022-12-13] MEDS ORDERED: BUPIVACAINE/EPINEPHRINE 0.5% MPF 1:200,000 30 ML VIAL ONE (09:44)
[2022-12-13] MEDS ORDERED: ePHEDrine sulfate 50 MG/ML AMP ONE (09:45)
[2022-12-13] MEDS ORDERED: SODIUM CHLORIDE 0.9% INJ 10 ML VIAL ONE (09:45)
--- NOTE | 2022-12-13 09:54 | Procedure Note ---
Angiogram Post Procedure Fluoroscopy Time (minutes): 4.3 Radiation (mGy): 49 Contrast: 18 Post Operative Report Pre & Post Diagnosis Operation Date: 12/13/22 08:00 Pre-Op Diagnosis: Severe Right Internal Carotid Artery Stenosis Post-Op Diagnosis: Severe Right Internal Carotid Artery Stenosis I identified the patient and participated in the time-out.: Yes Procedure Operation Date: 12/13/22 08:00 Actual Procedures p Right Transcarotid Artery Revascularization(Right), Ultrasound localization of right common femoral vein - Alexander Juarez MD Surgeon Alexander Juarez MD Filling Hauler Neetu,PAC Estimated Blood Loss 20 Findings Consistent with Post-Op Diagnosis Specimens none Anesthesia Type General Complications none Disposition Accompanied Patient To Recovery: No Disposition: Recovery Room Indications This is a 67-year-old male who was admitted with visual disturbance in both eyes. During his work-up he was found to have a severe stenosis of the right internal carotid artery which was preocclusive. Intervention was recommended. We went over the risks options and benefits of TCAR versus endarterectomy. He chose to go ahead with TCAR and he was a candidate. I have discussed the risks options and benefits of the procedure with the patient. The patient understands the risks options and benefits and agrees to the procedure. Description of Procedure The patient was taken to the operating room and placed in supine position. After general anesthesia was accomplished the groins and right side of the neck and chest were prepped and draped in a sterile manner. Timeout was performed and the patient was identified. A transverse incision was made just above the clavicle between the heads of the sternocleidomastoid. This was carried down to where the common carotid artery was identified. It was isolated and slung with an umbilical tape. It was given 8000units of heparin at that time. Ultrasound was then used to localize the left common femoral vein. The vein was patent and compressed easily. Under ultrasound guidance the left common femoral vein was punctured and the venous sheath was inserted. This was aspirated and flushed with heparinized saline. An ACT at that time was 245. Using micropuncture technique the common carotid artery was punctured. The micro sheath was inserted to 3 cm. Injection was then done showing the bifurcation. There was a significant lesion seen at the origin of the internal carotid artery on the right side. We then inserted the J-wire and keep it short of the bifurcation of the carotid artery. The TCAR sheath was inserted. Once it was in place and held against the artery it was sutured to the chest wall and the incision edge. We then flushed the tubing appropriately. The venous return tubing was clamped onto the TCAR sheath. It was flushed through and then attached to the venous inflow sheath in the left groin. The sheath was checked for flow. We then inserted a 5 x 3 balloon backloaded on the wire. The wire was passed through the lesion with the help of a kumpe catheter into the petrous portion of the internal carotid. The 5 balloon was then advanced to the lesion. The lesion was then predilated with the 5 mm balloon. The balloon was removed. We then inserted the 9 x 30 stent. This was deployed across the lesion without difficulty. The catheter was removed.The carotid was allowed to go 2 minutes with flow reversal. Completion angiogram was done at that time which showed a mild residual stenosis. We post ballooned the stent with the 5 x 3 balloon with good results. Again after the angio was done and the wire was removed we allowed 2 minutes of flow reversal to occur. A that point the common carotid artery was unclamped. The venous return tubing was clamped and removed from the TCAR sheath. The blood was allowed to flow back into the venous system. Once this was completed the sheath was pulled from the groin and pressure was applied. The TCAR sheath was then removed and the 5-0 Prolene suture securely tied. Hemostasis was noted of the puncture site. Wound was irrigated with Ancef solution. Adequate hemostasis was obtained of the wound. Once this was noted the wound was closed in usual fashion using a 3-0 Vicryl suture for the s ubcutaneous layer and a 4-0 subcuticular Vicryl suture for the skin edges. Dermabond was used for dressing.The patient left the operation room in satisfactory condition and tolerated the procedure well. All needle and sponge counts were correct at the end of the procedure. Suyapa Brown Pac assisted due to lack of resident availability and was necessary for positioning, draping, retraction, wound closure deep layers, subcutaneous tissue, and skin closure and was necessary for assisting with the case. I attest to the content of the Intraoperative Record and any orders documented therein. Any exceptions are noted below.
[2022-12-13] MEDS ORDERED: POLYETHYLENE (MIRALAX) 17 GM PACK PO PRN (11:01)
--- NOTE | 2022-12-13 11:04 | Anesthesiology Progress Note ---
Date of Service December 13, 2022 Anesthesia Post Procedure Vital Signs Vital Signs: Temp Pulse Resp BP Pulse Ox O2 Del Method O2 Flow Rate 12/13/22 10:35 68 19 110/61 98 Nasal Cannula 2 12/13/22 10:25 72 20 126/69 97 Oxymask 5 12/13/22 10:15 84 20 110/56 L 98 Oxymask 5 12/13/22 10:07 35.9 C L 82 20 132/79 98 Oxymask 5 12/13/22 06:15 36.3 C L 63 20 146/85 H 97 Room Air Transfer of Care Handoff Completed per policy Notes Mental Status: alert / awake / arousable Patient Amnestic to Procedure: Yes Nausea / Vomiting: adequately controlled Pain: adequately controlled Airway Patency, RR, SpO2: stable & adequate BP & HR: stable & adequate Hydration State: stable & adequate Anesthetic Complications: no major complications apparent
[2022-12-13] MEDS: LACTATED RINGER'S 1,000 ML IV SCH ×2 (11:34→18:23)
[2022-12-13] MEDS: oxyCODONE/ACETAMINOPHEN 5mg/325mg TAB PO PRN ×2 (12:17→20:19)
--- NOTE | 2022-12-13 13:29 | Critical Care Consultation ---
Date of Consultation December 13, 2022 Assessment & Plan (1) Stenosis of right carotid artery: (2) Postoperative bradycardia: Supervising Physician Co-Signing Physician Notes Defer antihypertensive regimen, antiplatelet regimen and pain regimen to primary team. ICU team will continue monitoring the patient while he remains under ICU status. Thank you for allowing us to participate in the care of this patient. Please call with questions. History of Present Illness Attending Physician: Alexander Juarez MD History of Present Illness History obtained from chart review, discussion with bedside RN and discussion with patient. 65-year-old male with a history of recurrent TIA who presented to the hospital for a TCAR today. He is currently in the ICU for post monitoring. He remains hemodynamically stable. He has an arterial line in place. He is mildly bradycardic. He denies any overt complaints. Oxygen requirements are minimal. His home antihypertensive and antiplatelet regimen has been restarted by the vascular surgeon. Allergies Allergy/AdvReac Type Severity Reaction Status Date / Time meloxicam Allergy Unknown UNKNOWN Verified 12/13/22 06:19 simvastatin Allergy Unknown UNKNOWN Verified 12/13/22 06:19 buprenorphine [From Suboxone] AdvReac Intermediate Wheezing Verified 12/13/22 06:19 naloxone [From Suboxone] AdvReac Intermediate Wheezing Verified 12/13/22 06:19 amitriptyline AdvReac Mild Made HAs Verified 12/13/22 06:19 worse celecoxib AdvReac Mild GI PROBLEMS Verified 12/13/22 06:19 morphine AdvReac Unknown ITCHY, Verified 12/13/22 06:19 CONFUSION,AGITIATION atorvastatin AdvReac MYALGIA Verified 12/13/22 06:19 Home Medications Medication Instructions Recorded Confirmed Type aspirin 81 mg tablet,delayed 81 mg PO QAM 03/07/19 12/13/22 History release polyethylene glycol 3350 17 17 g PO DAILY PRN Constipation 03/24/20 12/13/22 History gram/dose oral powder #1,530 grams buprenorphine HCl 8 mg sublingual 8 mg sublingual TID 11/11/22 12/13/22 History tablet acetaminophen 500 mg tablet 1,000 mg PO TID 11/17/22 12/13/22 History atenolol 50 mg tablet 50 mg PO QAM 11/17/22 12/13/22 History bisacodyl 5 mg tablet,delayed 10 mg PO HS 11/17/22 12/13/22 History release (Dulcolax (bisacodyl)) cholecalciferol (vitamin D3) 50 50 mcg PO QPM 11/17/22 12/13/22 History mcg (2,000 unit) capsule (Vitamin D3) doxazosin 4 mg tablet 4 mg PO QPM 11/17/22 12/13/22 History fluticasone fur. 100 mcg-umeclid 1 inh inhalation QAM 11/17/22 12/13/22 History 62.5 mcg-vilant 25 mcg inhalat.powder (Trelegy Ellipta) fluticasone propionate 50 2 spray intranasal QAM 11/17/22 12/13/22 History mcg/actuation nasal spray,suspension (Flonase Allergy Relief) lisinopril 10 mg tablet 10 mg PO QAM 11/17/22 12/13/22 History amlodipine 10 mg tablet 10 mg PO QAM #90 tabs 11/29/22 12/13/22 Rx gabapentin 100 mg capsule 200 mg PO HS 30 days #60 caps 12/06/22 12/13/22 Rx atorvastatin 80 mg tablet (Lipitor) 80 mg PO HS 12/13/22 12/13/22 History clopidogrel 75 mg tablet (Plavix) 75 mg PO QAM 12/13/22 12/13/22 History Patient History Medical History (Updated 12/13/22 @ 13:27 by Ja Astorga MD) Antiplatelet or antithrombotic long-term use pt d/c 11/13/22 on plavix BPH (benign prostatic hyperplasia) CAD (coronary artery disease) CABG x 2 ([facility]OD[facility]IGUEZ-L[facility], [facility]-R[facility]) 2001; cath 2013 showed patent grafts. scheduled for repeat cath 2021 but did not proceed 2 anxiety. pt did not r/s. Seen by cardio 10/2022: 'hx of stable exertional angina which has not changed or increased' Carotid artery stenosis severe (string sign) R ICA stenosis noted on CTA neck 11/2022. also with 60% LICA stenosis Chronic constipation Chronic leg pain 2/2 OA Chronic osteoarthritis chronic pain s/p b/l TKA; pt follows with pain management COPD (chronic obstructive pulmonary disease) controlled with trelegy Degenerative disc disease Depression with anxiety Diverticulosis Dyslipidemia atorvastatin dosage increased from 40mg to 80mg 11/2022 Dyspepsia Fear of awareness under general anesthesia Pt had trauma as a child and does NOT want to be awake during intubation or extubation Per phone conversation- 11/17/22- did explain that patient's are usually not aware during intubation (pt has no known hx of difficult intubation) and ideally are not aware of extubation unless there are complications. Pt had knee scope done 05/09/19 without noted issues with GA (LMA used) Gastroesophageal reflux disease Hemorrhoids Hypertension Insomnia Moderate obstructive sleep apnea DOES NOT TOLERATE CPAP. home O2 1.5-2 L qHS at home; was on CPAP during 11/2022 hospitalization Nephrolithiasis On home oxygen therapy 1.5-2 LPM QHS (due to noncompliant with CPAP) Opioid use disorder pt with hx of rx opioid dependence; now following with pain mgmt and using suboxone Postoperative bradycardia TIA (transient ischemic attack) inpatient 11/11/22-11/13/22 [facility] for 'possible TIA'. found to have severe R carotid stenosis. per neuro, sx 'likely cerebral hypoperfusion' and per vascular, sx likely not caused by carotid stenosis Type 2 diabetes mellitus diet controlled; 11/2022 Ha1c: 6.0% Ureteral colic Vitamin D deficiency on supplement Surgical History History of appendectomy History of cardiac cath 8-10 YEARS AGO - [facility] - CP - NO STENTS/ANGIOPLASTY 2000 - [facility] --> CABG History of cataract surgery BILATERAL History of coronary artery bypass graft (2000) 2000 - 2 VESSELS - [facility] [address] - FOLLOWS W/ DR. JUSTICE History of cystoscopy History of lithotripsy History of tonsillectomy History of tooth extraction S/P right knee arthroscopy (05/09/19) Status post total left knee replacement Status post total right knee replacement Family History Brother Lung disease Diabetes Coronary heart disease Sister Diabetes Brain cancer Mother Diabetes Myocardial infarction Ovarian cancer Father Myocardial infarction Denies family history of Prostate cancer Breast cancer Lung cancer Colorectal cancer Social History Smoking Status: Never smoker Tobacco Type: Smokeless Tobacco (Dip or Chew) Age Started Using Tobacco: 3; Second Hand Exposure: No; Do You Dip or Chew Tobacco: Yes (1.5 cans per day); Tobacco Cessation Education Requested by Patient: No Hx Alcohol Use: No Hx Substance Use: Yes ("I was hooked on prescribed percocets years ago") Preferred Language: [place] Citizen Communication Ability: Effective Visual Impairment: No Limitations Hearing Ability: Normal [employer]ke Hand[employer] Supervisor Required: No Beliefs That Will Affect Care: None marital status: Single Current Living Situation: Spouse current occupational status: retired How many Children do You have: 2 Feels Safe at Home: Yes Safety Concerns: Feels Safe At This Time Childhood Exposure to Second-Hand Smoke: No Diet Comment: regular caffeine: No during the past year weight has: remained stable Dental Care, Regularly: No Physical Activity Frequency: 1-2 Times per Week Seatbelt Use: always Sunscreen Use: No Assistive Devices: Glasses and Oxygen - at Night Review of Systems Review of Systems: All systems reviewed & are unremarkable except as noted in HPI & below Physical Exam Physical Exam: Constitutional: Patient appears to be of their stated age. Patient is in no apparent distress. Patient is well-developed. Eyes: Pupils are equal round and reactive to light. Conjunctivae are normal. Anicteric sclera. Ears nose, mouth and throat: Deferred. Neck: Trachea is midline. Visual inspection is normal. Respiratory: Clear to auscultation bilaterally. No use of accessory muscles. No significant clubbing noted. Cardiovascular: Regular rate and rhythm. No murmurs. No edema. Carotid incision site is clean and intact Gastrointestinal: Normal bowel sounds, soft, nontender and nondistended. No hepatosplenomegaly noted. Musculoskeletal: No cyanosis. Patient is able to move all extremities. Strength is 5 out of 5 in the upper and lower extremities. Skin: No rashes, warm dry and intact. Neurologic: No obvious focal neurological deficits seen. Psychiatric: Alert and oriented x3 with a euthymic affect. Results & Data Results & Data ([facility]) Vital Signs (Past 12 Hours) Vital Signs Temp Pulse Pulse Resp BP BP Pulse Ox 12/13/22 13:15 55 L 16 92 12/13/22 13:00 55 L 16 94 12/13/22 12:45 56 L 12 93 12/13/22 12:30 56 L 11 L 95 12/13/22 12:30 111/64 12/13/22 12:15 55 L 11 L 91 12/13/22 12:00 56 L 14 97 12/13/22 12:00 107/59 L 12/13/22 11:45 57 L 13 95 12/13/22 12:01 55 L 14 107/59 L 94 12/13/22 12:00 59 L 113/52 L 12/13/22 11:51 12/13/22 11:51 58 L 12/13/22 11:01 58 L 16 101/65 95 12/13/22 11:31 64 19 97 12/13/22 11:31 101/65 12/13/22 11:30 64 19 88 L 12/13/22 11:15 59 L 12 97 12/13/22 11:03 62 12 100/74 94 12/13/22 10:35 68 19 110/61 98 12/13/22 10:25 72 20 126/69 97 12/13/22 10:15 84 20 110/56 L 98 12/13/22 10:07 35.9 C L 82 20 132/79 98 12/13/22 06:15 36.3 C L 63 20 146/85 H 97 O2 Del Method O2 Flow Rate 12/13/22 13:15 Nasal Cannula 2 12/13/22 13:00 12/13/22 12:45 Room Air 12/13/22 12:30 12/13/22 12:30 12/13/22 12:15 12/13/22 12:00 12/13/22 12:00 12/13/22 11:45 12/13/22 12:01 Room Air 12/13/22 12:00 12/13/22 11:51 Nasal Cannula 2 12/13/22 11:51 12/13/22 11:01 Nasal Cannula 2 12/13/22 11:31 Nasal Cannula 2 12/13/22 11:31 12/13/22 11:30 12/13/22 11:15 12/13/22 11:03 Nasal Cannula 2 12/13/22 10:35 Nasal Cannula 2 12/13/22 10:25 Oxymask 5 12/13/22 10:15 Oxymask 5 12/13/22 10:07 Oxymask 5 12/13/22 06:15 Room Air Coding Level of Care Code 88638 IN/OBS CONSULT LVL 2,35M Diagnoses Stenosis of right carotid artery I65.21 Postoperative bradycardia I97.89
[2022-12-13] MEDS: ACETAMINOPHEN 500 MG TAB PO SCH ×2 (14:15→20:56)
[2022-12-13] MEDS: buprenorphine HCL 8 MG SUBL SL SCH ×2 (14:20→20:56)
[2022-12-13] MEDS: ceFAZolin 2000MG 2,000 MG/15 ML SYR IV SCH (15:53)
[2022-12-13] MEDS ORDERED: bisacodyL 5 MG TABEC PO SCH (21:00)
[2022-12-13] MEDS ORDERED: ATORVASTATIN 40 MG TAB PO SCH (21:00)
[2022-12-13] MEDS ORDERED: CHOLECALCIFEROL 1,000 UNITS 25 MCG TAB PO SCH (21:00)
[2022-12-13] MEDS ORDERED: DOXAZosin MESYLATE 4 MG TAB PO SCH (21:00)
[2022-12-13] MEDS ORDERED: GABAPENTIN 100 MG CAP PO SCH (21:00)
[2022-12-14] MEDS: ceFAZolin 2000MG 2,000 MG/15 ML SYR IV SCH (01:05)
[2022-12-14] MEDS: LACTATED RINGER'S 1,000 ML IV SCH (03:47)
--- NOTE | 2022-12-14 08:10 | Surgery Progress Note ---
Date of Service December 14, 2022 Assessment & Plan (1) Presence of internal carotid stent: Plan: Patient underwent an uneventful TCAR procedure on the right side. Doing well. Neuro intact. D/C today. Admission and Anticipated Discharge Date Admission Date: December 13, 2022 Subjective Only complaint is mild tenderness of the incision. No focal neuro complaints. Physical Exam Constitutional: WD/WN, vitals as above Neck: trachea midline Respiratory: normal respiratory effort; no respiratory distress Cardiovascular: Rate/Rhythm: regular rate and regular rhythm Skin: + incision (slight ecchymosis, no swelling) Neurologic: CN's II-XI intact bilaterally and moves all extremities Psychiatric: Orientation: alert and oriented x 3 Results & Data ([facility]) Vital Signs (Past 12 Hours) Vital Signs Temp Pulse Resp BP Pulse Ox O2 Del Method O2 Flow Rate 12/14/22 07:19 51 L 12/14/22 05:00 50 L 14 110/64 97 Nasal Cannula 2 12/14/22 04:00 36.5 C 12/14/22 04:00 53 L 16 112/69 98 Nasal Cannula 2 12/14/22 03:00 58 L 16 123/66 98 Nasal Cannula 2 12/14/22 02:00 49 L 14 104/62 93 Nasal Cannula 2 12/14/22 01:42 51 L 12 109/61 95 12/14/22 01:33 50 L 12 108/61 12/14/22 01:21 48 L 12 114/61 92 Room Air 12/14/22 01:00 51 L 12 91 12/14/22 00:00 51 L 14 92 Room Air 12/13/22 23:00 48 L 15 96 12/13/22 23:43 47 L 12/13/22 22:00 54 L 15 99 12/13/22 21:00 60 15 92
--- NOTE | 2022-12-14 08:19 | Discharge Summary ---
Date of Service December 14, 2022 Admission HPI Per Admitting Provider Mr. Waterman is a middle-age male who presents to Dr. Juarez's vascular surgery clinic today for a follow-up appointment regarding his severe right ICA stenosis. This was noted during a hospital stay last week after he arrived with some bilateral vision changes and balance problems. He was having some associated headaches as well. CTA of the neck demonstrated a severe stenosis of his right ICA "string sign". Due to the severity of the stenosis and his significantly increased risk for a right hemispheric CVA, it was recommended that he consider undergoing intervention for this. At the time patient preferred to discuss with his family and then come in the office here to discuss further. Patient states that he has been doing better with the headaches and not had any more vision changes since last weekend and he has been taking Tylenol for the headaches which works well. He denies any other new symptoms at this time. He states he is ready to discuss surgery. Admission Exam Per Admitting Provider Physical Exam: Constitutional:L WD/WN, vitals as a sher + obese and + combative; not i n distress ENMT: Ears: no hearing i mpairment Neck: trachea midline Respiratory: normal respiratory effort, lungs jose d ar to auscultation Auscultation: + diminished lung so unds Cardiovascular:L Rate/Rhythm: regul ar rate and regula r rhythm Vessels: + carotid bruit, femoral pulses pre sent, posterior ti bial pulses presen t, dorsalis pedis pulses present and radial pulses pre sent; + abnormal p eripheral pulses Extremities: lang l capillary refill ; no edema Gastrointestinal ( Abdomen): Inspection/Auscult ation: abdomen nor mal to inspection and normal bowel s ounds Percussion/ Palpation: abdomen soft; abdomen non tender Musculoskeletal: no cyanosis or clu bbing, extremities motor strength 5/ 5 Skin: no rashes, warm an d dry Neurologic: moves all extremit ies and awake; no focal motor defici ts and not confuse d Psychiatric: A+Ox3, euthymic af fect Principal Diagnosis Right internal carotid artery stenosis, post transcarotid artery revascularization Discharge Exam Constitutional WD/WN, vitals as above Neck trachea midline Respiratory normal respiratory effort; no respiratory distress Cardiovascular Rate/Rhythm: regular rate and regular rhythm Skin + incision (slight ecchymosis, no swelling) Neurologic CN's II-XI intact bilaterally and moves all extremities Psychiatric Orientation: alert and oriented x 3 Discharge Data Allergies Allergy/AdvReac Type Severity Reaction Status Date / Time meloxicam Allergy Unknown UNKNOWN Verified 12/13/22 06:19 simvastatin Allergy Unknown UNKNOWN Verified 12/13/22 06:19 buprenorphine [From Suboxone] AdvReac Intermediate Wheezing Verified 12/13/22 06:19 naloxone [From Suboxone] AdvReac Intermediate Wheezing Verified 12/13/22 06:19 amitriptyline AdvReac Mild Made HAs Verified 12/13/22 06:19 worse celecoxib AdvReac Mild GI PROBLEMS Verified 12/13/22 06:19 morphine AdvReac Unknown ITCHY, Verified 12/13/22 06:19 CONFUSION,AGITIATION atorvastatin AdvReac MYALGIA Verified 12/13/22 06:19 Consultations 12/13/22 11:01 Consult Community Health Consultant Routine Procedures Performed Operation Date: 12/13/22 08:00 Actual Procedures p Right Transcarotid Artery Revascularization(Right) - Alexander Juarez MD Ordered Studies 12/13/22 07:08 EV angio carotid cerv RT Routine Hospital Course (1) Presence of internal carotid stent: Patient underwent an uneventful TCAR procedure on the right side. Doing well. Neuro intact. D/C today. Total Time Total Time Spent Total Time Spent (In Minutes): 0 Discharge Plan Discharge Items Patient Disposition: Home - Self-Care Reason For Visit: Severe Right Internal Carotid Artery Stenosis Discharge Diagnosis: Right internal carotid artery stenosis, post TCAR Activity: Per Instructions section Non-emergency contact: Surgeon Call non-emergency contact if: your temperature is above 101.5, your wound has increased redness, your wound has increased drainage and your wound pain has increased Follow-up/Referrals: Kala Vargas DO [Primary Care Provider] - Diet: Carb Consistent or DM2 and Heart Healthy Addtl Attending Provider Instructions: SPECIAL CARE INSTRUCTIONS: Medications: * Continue to take Aspirin, plavix and atorvastatin(lipitor) as directed non stop for one month. Call the office if any of these need to be stopped during the first year post procedure . Incision Care: * You may shower, but do not rub incision. You may let the warm soapy water run over it. Be sure to dry the incision well after bathing. * Do not shave directly over the incision until it is healed. * DO NOT IMMERSE THE INCISION IN A TUB/POOL/etc. UNTIL HEALED. Restrictions: * Do not drive for at least one week or if you are still taking any narcotic pain medication. * Do not lift anything heavier than a gallon of milk for one week after going home. Possible Complications: * Numbness - It is normal to have some numbness around the incision. Numbness can extend beyond the incision to areas of the neck, ear and face. The numbness is due to bruising of nerves during the surgery and will gradually improve over a period of months. * Hoarseness/Difficulty Speaking and Swallowing - The bruising of nerves in the neck can also cause a hoarse voice, difficulty speaking or swallowing. This may improve over time, HOWEVER, if it continues for more than a few days please contact our office ([phone]). * Excessive Swelling - There will be some swelling immediately after surgery which usually resolves within one week. If you notice that the swelling is getting worse, notify your surgeon ([phone]). * Drainage/Bleeding - If there is any drainage or bleeding, it should be a very small amount (less than a teaspoon per day). If you have excessive bleeding or drainage from the incision, call your surgeon ([phone]) right away. ACTIVATION OF EMERGENCY MEDICAL SYSTEM: Call 911, immediately, if you experience any of the following: Warning Signs and Symptoms of Stroke: * Sudden numbness or weakness of the face, arm or leg, especially on one side of the body * Sudden confusion, trouble speaking or understanding * Sudden trouble seeing in one or both eyes * Sudden trouble walking, dizziness, loss of balance or coordination * Sudden severe headache with no cause Do not delay calling 911 if you experience any warning signs or symptoms of a stroke. Delay in seeking medical attention may affect what treatments can be given to you. Risk Factors for Stroke: You can reduce your chances of stroke by working with your medical provider to adopt a healthy lifestyle. Some specific ways to lower your chance of stroke are: * If you are a smoker, now is the time to stop smoking cigarettes * If you are diabetic, improve the control of your blood sugars * Avoid excessive amounts of alcohol * Control high blood pressure * Lose weight if you are overweight * Be sure to lead an active lifestyle * Eat a healthy diet low in salt, cholesterol and fat You should know about other risk factors for stroke that you are unable to control. These include: * Age 55 years or older * Male gender * Certain racial groups: , or / * Family History of Stroke, Mini stroke or Heart Attack * Sickle Cell Disease You will be receiving a call from the Vascular Surgery Nurse after you are discharged. FOLLOW UP VISIT: It is important for you to keep your follow up appointments with your medical provider. Keep any scheduled doctor appointments Call [phone] to schedule a follow up appointment if one not already scheduled.. Pending Studies at Discharge: No Stand-Alone Forms: My [facility], Smoking Cessation Medications and DC Order Prescriptions: New clopidogrel [Plavix] 75 mg tablet 75 mg PO DAILY Qty: 30 11RF oxycodone-acetaminophen [Percocet] 5-325 mg tablet 1 tab PO Q8H PRN (Reason: pain) Qty: 7 0RF Continued gabapentin 100 mg capsule 200 mg PO HS 30 Days Qty: 60 2RF aspirin 81 mg tablet,delayed release (DR/EC) 81 mg PO QAM polyethylene glycol 3350 17 gram/dose powder 17 g PO DAILY PRN (Reason: Constipation) Qty: 1530 amlodipine 10 mg tablet 10 mg PO QAM Qty: 90 1RF acetaminophen 500 mg Tablet 1,000 mg PO TID bisacodyl [Dulcolax (bisacodyl)] 5 mg Tablet,Delayed Release (Dr/Ec) 10 mg PO HS cholecalciferol (vitamin D3) [Vitamin D3] 50 mcg (2,000 unit) Capsule 50 mcg PO QPM lisinopril 10 mg tablet 10 mg PO QAM doxazosin 4 mg tablet 4 mg PO QPM fluticasone propionate [Flonase Allergy Relief] 50 mcg/actuation spray,suspension 2 spray intranasal QAM Rx Instructions: administer into each nostril atenolol 50 mg tablet 50 mg PO QAM Trelegy Ellipta 100-62.5-25 mcg blister with device 1 inh inhalation QAM atorvastatin [Lipitor] 80 mg Tablet 80 mg PO HS clopidogrel [Plavix] 75 mg Tablet 75 mg PO QAM buprenorphine HCl 8 mg tablet, sublingual 8 mg SL TID Rx Instructions: 8 mg SL 3 X DAILY UNDER TONGUE Discharge Orders: Discharge Order (Routine); Ordered 12/14/22 Ordered By: Alexander Juarez Admission Data Admit Date/Time: 12/13/22 09:43 Attending Provider: Alexander Juarez Admit Provider: Alexander Juarez Primary Care Provider: Kala Vargas Other Providers: Aakash Obrien ; Toby Humphrey ; Ollie Melgoza ; Ja Astorga ; Rick Gordillo ; Dieudonne Whatley ; Samir Malcolm ; Darion Ascencio ; Eri Colón
[2022-12-14] MEDS: ACETAMINOPHEN 500 MG TAB PO SCH (08:31)
[2022-12-14] MEDS: buprenorphine HCL 8 MG SUBL SL SCH (08:40)
[2022-12-14] MEDS ORDERED: CLOPIDOGREL BISULFATE 75 MG TAB PO SCH (09:00)
[2022-12-14] MEDS ORDERED: ASPIRIN 81 MG ECTAB PO SCH (09:00)
[2022-12-14] MEDS ORDERED: FLUTICASONE FUROATE 100MCG 14 PUFFS/INHALER INH SCH (09:00)
[2022-12-14] MEDS ORDERED: UMECLIDINIUM/VILANTEROL 62.5/25MCG 7 PUFFS/INHALER INH SCH (09:00)
[2022-12-14] MEDS ORDERED: FLUTICASONE PROPIONATE NA SPR 16 GM BTL SCH (09:00)
[2022-12-14] MEDS ORDERED: amLODIPine BESYLATE 5 MG TAB PO SCH (09:00)
[2022-12-14] MEDS ORDERED: NON-FORMULARY MEDICATION (Fluticasone-Umeclidin-Vilanter [Trelegy Ellipta] 100-62.5-25 mcg INH SCH (09:00)
[2022-12-14] MEDS ORDERED: lisinopril 10 MG TAB PO SCH (09:00)
[2022-12-14] MEDS ORDERED: ATENOLOL 50 MG TABLET PO SCH (09:00)
== END 2022-12-14 11:33 | disposition home or self-care (01) | DRG 35 ==
LOC: ASU 05:55 → 1E 09:43
PROC: EV.TCAR (2022-12-13 08:00)